=== PATIENT | male | born 1955 | race African-American/Black ===

== ENCOUNTER 2023-12-27 11:29 | Inpatient (IN) | payer OTHER ==
[2023-12-27 19:33] LABS: Specific Gravity 1.018 (1.005-1.030); Sqamous Epithelial <5 /HPF (None Seen); Urine Bacteria None Seen /HPF (<20); Urine Bilirubin NEGATIVE (Negative); Urine Blood Negative (Negative); Urine Clarity Clear (Clear); Urine Color Light-Yellow (Yellow); Urine Culture Reflex Order NOT NEEDED; Urine Glucose NEGATIVE (Negative); Urine Ketones NEGATIVE (Negative); Urine Micro Reflex YN NO BILL MICROSCOPIC; Urine Mucus Slight /HPF (None Seen); Urine Nitrite NEGATIVE (Negative); Urine Protein NEGATIVE (Negative); Urine RBC None Seen /HPF (None Seen); Urine Urobilinogen Normal (Normal); Urine WBC <5 /HPF (<5); Urine pH 6.5 (5.0-7.0)
[2023-12-27] MEDS: levETIRAcetam 500 MG TAB PO SCH (20:17)
[2023-12-27] MEDS: ATORVASTATIN 80 MG TAB PO SCH (20:17)
[2023-12-27] MEDS: APIXABAN 5 MG TABLET PO SCH (20:17)
[2023-12-28 06:38] LABS: Absolute Eosinophils 0.2 K/uL (0-0.5); Absolute Monocytes 0.4 K/uL (0.1-1.3); Absolute Neutrophil 5.7 K/uL (1.8-8.0); MCV 96.2 fL (80-100)
[2023-12-28 06:42] LABS: Absolute Lymphocytes (CBC) 2.3 K/uL (0.7-4.9); Basophils % 0.6 % (0-1.3); Eosinophils % 2.1 % (0-4.4); Hematocrit 43.7 % (39.6-49.0); Hemoglobin 14.4 g/dL (13.6-17.9); Lymphocytes % 26.9 % (15.3-44.8); MCH 31.7 pg (27.0-35.0); MPV 8.3 fL (7.6-11.3); Monocytes % 4.6 % (3.3-12.3); Neutrophils % 65.8 % (41.7-73.7); Platelets 199 thou/uL (152-406); RBC Red Blood Cell Count 4.54 M/uL (4.33-5.43); Red Cell Distribution Width 14.2 % (12.1-15.2)
[2023-12-28 06:57] LABS: Albumin 3.9 g/dL (3.4-5.0); Anion Gap 9.3 mEq/L (5.0-15.0); Magnesium 2.2 mg/dL (1.6-2.4); Potassium 4.3 mEq/L (3.5-5.1); Prealbumin 16.8 mg/dL (20-40)
[2023-12-28 07:22] LABS: Atypical Lymphocytes 2 %; Blood Morphology Comment NOT SEEN (NOT SEEN); Differential Total Cells Count 100; Eosinophils 3 % (0-3); Lymphocytes 25 % (15-42); Monocytes 5 % (0-10); Platelet Estimate ADEQ; Segmented Neutrophils 64 % (40-80); White Blood Cell Scan OK (OK)
[2023-12-28] MEDS: VITAMIN D 5,000 UNIT CAP PO SCH (08:00)
[2023-12-28] MEDS: lisinopriL 20 MG TAB PO SCH (08:00)
[2023-12-28] MEDS: SERTRALINE HCL 50 MG TAB PO SCH (08:04)
[2023-12-28] MEDS: ASPIRIN EC 81 MG TAB PO SCH (08:04)
[2023-12-28] MEDS ORDERED: LOPERAMIDE HCL 2 MG CAPSULE PO PRN (13:39)
--- NOTE | 2023-12-28 15:08 | RAD REPORT ---
EXAM DESCRIPTION: RAD - Chest Single View - 12/28/2023 3:01 pm CLINICAL HISTORY: R/O PNA Chest pain. COMPARISON: No comparisons FINDINGS: Portable technique limits examination quality. The lungs are grossly clear. The heart is normal in size. No displaced fractures. IMPRESSION: No acute intrathoracic process suspected.
[2023-12-28] MEDS: ENSURE CLEAR 200 ML CAN PO SCH (20:57)
[2023-12-28] MEDS: lisinopriL 10 MG TAB PO SCH (20:58)
[2023-12-28] MEDS: MELATONIN 3 MG TABLET PO PRN (20:58)
--- NOTE | 2023-12-29 01:51 | HP ---
Date of Admission: 12/27/2023 Time: 1 p.m. Chief Complaint: The patient's daughter is in the room and the patient became a little bit more conf used and weak after having bladder infection. History Of Present Illness: Mr. Savage is a 68-year-old patient with history of multiple strokes inv olving watershed areas from the MCA and PAINT STOCK CLERK territory in January 2022 in addition to a left MCA str nathaniel in March 2022 and another small left PAINT STOCK CLERK stroke in March 2023 in addition to an additional stroke in the left MCA territory in September 2023. Risk factors include atrial fibrillation, hypertension . The sequelae of stroke include the localization-related seizures, treated with Keppra. He has cor onary artery disease, status post percutaneous coronary angioplasty in addition to hypertension. On December 20, he was seen at [facility] with some worsening left-sided weakness, slurred speech, and confusion. His gait is somewhat shuffling and on top of his left-sided weakness, he had generalized weakness. He was sent to [facility] for higher level of care and there diagnosed wit h encephalopathy in the setting of urinary tract infection and the sequelae of chronic stroke versus acute ischemic stroke. His workup included brain MRI, which showed no acute ischemic stroke, but the MRA showed worsening of his left MCA stenosis. Again, the MRI for stroke on December 25 was negative for acute stroke. He did have transthoracic echocardiogram that was normal. His treatment included aspirin 81 mg daily, atorvastatin 80 mg daily. He did have hypertension addressed with antihypertens shauna medications. He was evaluated by Physical Therapy and Speech Therapy Service and found to requir e minimum assistance for transfers, moderate assistance to maximum assistance for ADLs and for his co mmunication, where he has some difficulty with his expression, comprehension, in addition to difficul ty swallowing with high risk of aspiration. As a result of his urinary tract infection, did receive Rocephin and was put on Eliquis for atrial fibrillation which is paroxysmal. Again, started on aspir in and statin in addition for stroke risk reduction. Given this complicated medical condition and th e need for aggressive physical, occupational, and speech therapy, he was determined to be an appropri ate candidate for inpatient rehabilitation, where he can receive physical, occupational, and speech t herapy along with medical management to help reduce his risk of rehospitalization and help him return to prior level of functioning. Past Medical History: As noted. In addition, tobacco use disorder and atrial fibrillation, on antic oagulation, and multiple strokes as noted. X-ray/imaging: His imaging studies include brain CT angiogram showing complete occlusion of the dist al M1 segment on the right. There is severe stenosis of right vertebral artery at the origin and sca ttered areas of irregularity in the right B1 and B2 segments. EKG shows sinus bradycardia, and brain MRI on 12/21 shows multifocal chronic infarcts in the supratentorial and infratentorial parenchyma. Laboratory Studies: His complete blood count with differential is completely normal. White blood ce ll count 8.7, hemoglobin 14.4, platelets 199. Sodium 140, potassium 4.3, chloride 111, carbon dioxid e 24, BUN 14, creatinine 1.02, calcium 9.9, magnesium 2.2, albumin 3.9, prealbumin 16.8. Urinalysis completely normal. Medications: Eliquis 5 mg twice daily, aspirin 81 mg daily, Lipitor 80 mg at bedtime, Ensure Clear 2 37 mL twice daily, vitamin D 50,000 units weekly, Keppra 750 mg twice daily, Prinivil 10 mg twice bev ly, Imodium 2 mg every 4 hours as needed, melatonin 3 mg at bedtime, Senokot-S 2 at bedtime, Zoloft 5 0 mg daily. Family History: Noncontributory. Social History: The patient lives with family and no intravenous drug use. Does smoke cigarettes. He is not currently smoking because he is in the hospital. Review of Systems: As noted, no current fevers or chills. Mild myalgias, arthralgias. No rash. No headache. No psych iatric issues and no other positives on a 10-point systems review. Physical Examination: Vital Signs: Blood pressure 118/68, pulse 72, respiratory rate of 18, temperature 97.3, oxygen satur ation 97%. General: Mr. Savage is in his room waiting therapy. His daughter is at the bedside. HEENT: He is normocephalic, atraumatic. Sclerae anicteric. Oropharynx moist. Neck: Supple. Chest: Clear. Heart: Regular. Extremities: Show no significant edema or cyanosis. He does have some difficulty in terms of streng th. It is diffusely weak in the left and right side, but he was able to hold his hand up for a count of 10 and legs also elevate for a count of 5. Difficult to assess his sensation properly as he has some difficulty with his expression. However, he does follow commands appropriately with encourageme nt for labial, lingual, and guttural sounds. Current Level Of Functioning: Eating supervision, oral hygiene supervision, toileting moderate yovani tance, bathing maximal assistance, upper body dressing moderate assistance, lower body dressing maxim um assistance, donning and doffing of footwear maximum assistance, rolling [id number] and right-to -left with contact guard assistance. For sit to lying, moderate assistance. For lying to sitting on side of bed, moderate assistance. [id number], moderate assistance. Transfer from bed to chair to toilet, moderate assistance. Ambulation, moderate assistance. Covered a distance of 100 feet with hand holding as he ambulated. Rehab And Medical Assessment And Plan: Mr. Savage is admitted to the inpatient rehabilitation unit w ith impairment category 01 stroke. Impairment group code is 01.4, stroke without significant paresis , but with expressive aphasia. Etiologic diagnosis, sequelae of stroke and his comorbidities are cor onary artery disease, chronic atrial fibrillation, decreased mobility, decreased physical functioning , dysphagia, essential hypertension, dyslipidemia, urinary tract infection. Plan: 1.He will have physical, occupational, and speech therapy for 3.5 hours, 5 of 7 days. 2.We will continue Zoloft for mood stabilization, Senokot for constipation, melatonin for insomnia, Imodium for loose stools, which the patient did have about 2 or 3, Prinivil for hypertension, Keppra 750 mg twice daily for seizure prophylaxis, vitamin D for low vitamin D levels, Lipitor for dyslipide marychuy, Ensure Clear for malnutrition, Eliquis 5 mg twice daily for atrial fibrillation. Comorbidities That Are Impacting Rehabilitation: He does have a risk of seizures and seizure precaut ions will be adhered to padding on the side of the bed with padded rails. The patient of course will have a gait belt at all times as he ambulates and will be observed for the potential for seizure act ivity including activity at rest, automatisms, and tonic-clonic activity. He does have atrial fibril lation and is on Eliquis, so he is at risk of bleeding. Again, fall precautions adhered to at all ti mes to reduce the chance of internal hemorrhage with potential falls. Rehab Specific Plan: Mr. Savage will have physical, occupational, and speech therapy for 3.5 hours, 5 of 7 days, to improve his ability to transfer from bed to chair to a wheelchair to ambulate with a walker and a cane and no assistive device. Also go up and down steps with independence and mobilize a wheelchair with independence. In addition, Speech to help him with his articulation and comprehens ion expression along with his swallowing. He currently has thickened liquids, mechanical soft diet, and will work on advancing the diet to a more solid consistency based on improvement. Mr. Savage has a good understanding of the process of admission to the inpatient rehabilitation [facility], how he will benefit from physical, occupational, and speech therapy. He will have 24 hours a da y, 7 days a week skilled rehabilitation and nursing, daily physician evaluation and management, and s ial services evaluation and management for discharge planning, home equipment, physician followup, and medications. If need be, additional help from Hospital Service will be sought. Barriers To Discharge: Mr. Savage again has atrial fibrillation. There is a possibility of a bleed and he may have to be transferred for higher level of care if that is the case. In addition, the ris k of seizures do exist. He is on Keppra which helps to mitigate against that. Does have difficulty with swallowing. May have aspiration pneumonia, will have chest x-ray done. If need be, blood cultu res and sputum cultures to rule out possibility of a pneumonia. Length Of Stay: About 2 weeks. Disposition: Home with family. Prognosis: Good. Rehab Specific Goals: 1.Become independent with upper and lower body dressing and donning and doffing footwear. 2.Independently perform all activities of daily living. 3.Independently ambulate 250 feet with a rolling walker and a cane and no assistive device. 4.Independently propel a wheelchair 250 feet. 5.Independently go up and down 10 steps with bilateral handrails. 6.Independently perform cognitive functioning. The above goals were reviewed with Mr. Savage and his daughter and they are in agreement. By signing this document, I acknowledge I personally performed a full physical examination on Mr. Roberts lls no later than 24 hours after his admission to the inpatient rehabilitation facility and determine d that he is able to tolerate the above course of treatment at an intensive level for a reasonable pe riod of time. A detailed individualized plan of care for him will be completed by hospital day 4 bas ed on the preadmission screen, history and physical, and therapy evaluations. CHIDI Voice ID: [id number]
--- OUTSIDE RECORDS SUMMARY | 2023-12-29 09:05 | XMS REPORT | Continuity of Care Document ---
Author Name Unknown Address [address] [place] [address] [facility] thconnect Address 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 Name Role Phone Bob Nielsen Primary Care Physician RICKY DIMAS Attending Clinician Unavailable DAREN POND Attending Clinician Unavai NABEEL Dong Attending Clinician Un available Sergio Stringer Attending Clinician Unavailabl jose RODRIGUEZ_F Attending Clinician Unavailable VIKTORIA LAND Attending Clinician Unava ilable Viktoria Land Attending Clinician MORALES_R Attending Clinician Unavailable Jennifer HALL, Francia Attending Clinician [phone] LARISA LEA Attending Clinician Unava ilable MK CRUZ Attending Clinician Unavailab GEMA Guardado Attending Clinician Unavailable ASHLEE NAJERA Attending Clinician UnavailBob Gibbs Attending Clinician [phone] Yasemin Parisi Attending Clinician LARISSA BARRAGAN Admitting Clinician UnavailMANUELA Collins Admitting Clinician Un available TIFFANY ALEJANDRE Admitting Clinician Unavailable DAVID_Aneesh Admitting Clinician Unavailable VIKTORIA LAND Admitting Clinician Unava ilable Viktoria Land Admitting Clinician MORALES_R Admitting Clinician Unavailable MK CRUZ Admitting Clinician Unavailab GEMA Guardado Admitting Clinician Unavailable Payers Payer Name Policy Type Policy Number Effective Date Expirati on Date Source [facility] [employer] [id number] 2021 00:00:00 [facility] - PHYSICIAN HEALTH CHOICE (MEDICARE REPLACEMENT HMO) [id number] [place] [id number] [facility] - MEDICARE COMPLETE (MEDICARE REPLACEMENT HMO) [id number] [place] [employer] [id number] 2013 00:00:00 [employer] (MEDICARE REPLACEMENT HMO) [id number] 2021 00:00:00 Prognosis [employer] (MEDICARE REPLACEMENT/[employer] GE - PPO) [id number] Problems Condition Name Condition Details Condition Category Status Onset Date Resolution Date Last Treatment Date Treating Clinician Comments Source ACUTE ISCHEMIC STROKE ACUTE ISCHEMIC STROKE Active 12/21/2023 [facility] Diagnosis Active 12-20 00:00: 00 2023-12-28 19:55:00 Anna Rodarte Hypophosph atemia Hypophosph atemia Problem Active 09-19 00:00: 00 [facility] Transient cerebral ischemia Transient Cerebral Ischemia Problem Active 09-14 00:00: 00 [facility] TIA VS SEIZURES, GENERALIZE D WEAKNESS TIA VS SEIZURES, GENERALIZE D WEAKNESS Active 09/12/2023 [facility] Diagnosis Active 09-11 18:23: 00 2023-09-13 01:50:00 [facility] BRAIN TIA BRAIN TIA Active 09/12/2023 [facility] Diagnosis Active 09-11 18:23: 00 2023-09-13 02:01:00 Memoria l Cayden BRAIN TIA, SEIZURE DISORDER, ATRIAL FIBR BRAIN TIA, SEIZURE DISORDER, ATRIAL FIBR Active 09/12/2023 [facility] Diagnosis Active 4-30 18:23: 00 2023-09-21 22:00:00 Anna Rodarte Seizure Seizure Problem Active 3-05 00:00: 00 [facility] Multiple nodules of lung Multiple Nodules of Lung Problem Active 1- 00:00: 00 [facility] Seizure (finding) Seizure (finding) Active 03/20/2023 Diagnosis 03/23/2023 [facility] Diagnosis Active 2022-05 00:00: 00 2023-03-23 04:21:47 Anna Rodarte Hypertensi ve disorder, systemic arterial (disorder) Hypertensi ve disorder, systemic arterial (disorder) Active 03/20/2023 Diagnosis 03/23/2023 [facility] Diagnosis Active 2022-05 00:00: 00 2023-03-23 04:21:47 Anna Rodarte STROKE STROKE Active 03/18/2023 [facility] Diagnosis Active 2022-05 1- 00:00: 00 2023-03-20 14:45:00 Anna Rodarte Anemia Anemia Problem Active 2022-05 0- 00:00: 00 [facility] Depressive disorder Depressive Disorder Problem Active 05-17 00:00: 00 [facility] STROKE SYMPTOMS STROKE SYMPTOMS Active 03/31/2022 [facility] Diagnosis Active 2021-05 00:00: 00 2022-03-31 17:03:00 Anna Rodarte STROKE CVA ISCHEMIC STROKE CVA ISCHEMIC Active 03/23/2022 [facility] Diagnosis Active 2021-05 00:00: 00 2022-03-28 15:41:00 Anna Rodarte Mixed hyperlipid emia Mixed Hyperlipid emia Problem Active 2021-05 0 00:00: 00 [facility] Tobacco user Tobacco User Problem Active 2021-05 0 00:00: 00 [facility] Coronary atheroscle rosis Coronary Atheroscle rosis Problem Active 2021-05 0 00:00: 00 [facility] Peripheral vascular disease Peripheral Vascular Disease Problem Active 2021-05 0-14 00:00: 00 [facility] History of transient ischemic attack History of Transient Ischemic Attack Problem Active 02-03 00:00: 00 [facility] CVA CVA Active 01/29/2022 [facility] Diagnosis Active 01-29 00:00: 00 2022-01-29 17:32:00 Anna Rodarte POTENTIAL STROKE POTENTIAL STROKE Active 01/29/2022 [facility] Diagnosis Active 01-29 00:00: 00 2022-01-31 06:49:00 Anna Rodarte ACUTE CEREBROVAS CULAR ACCIDENT ACUTE CEREBROVAS CULAR ACCIDENT Active 01/29/2022 [facility] Diagnosis Active 01-29 00:00: 00 2022-02-08 09:18:00 Anna Rodarte Prediabete s Prediabete s Problem Active 2020-05 0-08 00:00: 00 [facility] Secondary erectile dysfunctio n Secondary Erectile Dysfunctio n Problem Active 5-06 00:00: 00 [facility] Left hemiplegia Left Hemiplegia Problem Active 408 00:00: 00 [facility] Hypertensi ve disorder Hypertensi ve Disorder Problem Active 408 00:00: 00 [facility] Cerebrovas cular accident Cerebrovas cular Accident Problem Active 408 00:00: 00 [facility] Family history of malignant neoplasm Family History of Malignant Neoplasm Problem Active 408 00:00: 00 [facility] No known active problems No known active problems Disease [facility] Hyperlipid emia (disorder) Hyperlipid emia (disorder) Active Problem 02/02/2022 [facility] Problem Active 2022-02-02 22:57:19 Anna Rodarte Cerebral atheroscle rosis (disorder) Cerebral atheroscle rosis (disorder) Active Problem 03/23/2023 [facility] Problem Active 2023-03-23 04:21:47 Anna Rodarte CEREBRAL INFARCTION , UNSPECIFIE D CEREBRAL INFARCTION , UNSPECIFIE D Active [facility] Diagnosis Active 2022-02-08 09:18:00 Anna Rodarte ILLNESS, UNSPECIFIE D ILLNESS, UNSPECIFIE D Active [facility] Diagnosis Active 2023-09-13 01:50:00 Anna Rodarte TRANSIENT CEREBRAL ISCHEMIC ATTACK, UNSP TRANSIENT CEREBRAL ISCHEMIC ATTACK, UNSP Active [facility] Diagnosis Active 2023-09-21 22:00:00 Anna Rodarte History of Past Illness Condition Name Condition Details Condition Category Status Onset Date Resolution Date Last Treatment Date Treating Clinician Comments Source Essential hypertensi on (disorder) Essential hypertensi on (disorder) 03/20/2023 Diagnosis 03/23/2023 [facility] Diagnosis 2022-05 15:07: 00 2023-03-23 04:21:47 2023-03-23 04:21:47 Anna Rodarte Allergies, Adverse Reactions, Alerts Allergy Name Allergy Type Status Severity Reaction(s) Onset Date Inactive Date Treating Clinician Comments Source No Known Medicati on Allergie s No Known Medicati on Allergie s Active Anna Rodarte Social History Social Habit Start Date Stop Date Quantity Comments Source Sexual orientation 2022-03-09 14:42:48 Heterosexual (finding) [facility] History of tobacco use Cigarette Smoker [facility] Alcohol intake 2023-04-21 00:00:00 2023-04-21 00:00:00 .14 /d [facility] Exposure to SARS-CoV-2 (event) 2022-08-06 00:00:00 2022-08-16 08:54:00 Not sure [facility] History of Social function 2022-08-16 00:00:00 2022-08-16 00:00:00 [facility] Cigarettes smoked current (pack per day) - Reported 2022-03-09 00:00:00 2022-03-09 00:00:00 [facility] Cigarette pack-years 2022-03-09 00:00:00 2022-03-09 00:00:00 [facility] Tobacco use and exposure 2022-03-09 00:00:00 2022-03-09 00:00:00 Smokeless tobacco non-user [facility] Sex Assigned At 1955 00:00:00 1955 00:00:00 M [facility] Smoking Status Start Date Stop Date Source Heavy Tobacco Smoker [facility] Tobacco smoking status 2023-03-19 02:14:08 [facility] Medications Ordered Medication Name Filled Medication Name Start Date Stop Date Current Medication? Ordering Clinician Indication Dosage Frequency Signature (SIG) Comments Components Source lisinopril 20 MG tablet 2022-05 15:29: 35 04-21 00:00 :00 No 20mg QD Take 20 mg by mouth 1 (one) time each day. [facility] atorvastati n (Lipitor) 80 MG tablet 2022-05 00:00: 00 07-20 05:59 :00 No [id number] 80mg QD Take 1 tablet (80 mg total) by mouth 1 (one) time each day. [facility] Occupationa l Therapy 2022-05 16:32: 00 Yes See LOLIS Cedeno, EBONIE, Evaluate and Treat ___ times per week for ____ weeks, # 1 ea, 0 Refill(s) Anna Rodarte Physical Therapy 2022-05 16:32: 00 Yes See LOLIS Cedeno, EBONIE, Evaluate and Treat ___ times per week for ____ weeks, # 1 ea, 0 Refill(s) Anna Rodarte apixaban 5 mg oral tablet 2022-05 15:56: 00 Yes 5 mg = 1 tab, PO, Q12H, For Atrial Fibrillati on, # 60 tab, 2 Refill(s), Pharmacy: [facility], 162.56, cm, 03/18/23 21:10:00 CDT, Height, 51.3, kg, 03/18/23 21:10:00 CDT, Weight Anna Rodarte Keppra 750 mg oral tablet 2022-05 15:56: 00 Yes 750 mg = 1 tab, PO, Q12H, # 60 tab, 2 Refill(s), Pharmacy: [facility], 162.56, cm, 03/18/23 21:10:00 CDT, Height, 51.3, kg, 03/18/23 21:10:00 CDT, Weight Anna Rodarte calcium carbonate 2022-05 09:35: 00 No Notes: (Same As: Arely) Calcium Carbonate 500 mg = 200 mg elemental calcium Dose = mg calcium carbonate ( mg elemental calcium) Anna Rodarte atorvastati n 2022-05 03:00: 00 Yes Notes: Same as Lipitor Anna Rodarte Keppra 750 mg oral tablet 2022-05 03:00: 00 No 750 mg, Route: PO, Drug form: TAB, Q12H, Dosing Weight 51.3, kg, Start date: 03/19/23 21:00:00 [employer], Duration: 30 day, Stop date: 04/18/23 9:00:00 [employer] Anna Rodarte nicotine 2022-05 16:48: 00 Yes Notes: Patch is applied daily to clean, dry, hairless, intact skin on trunk or upper outer arm. Starting dose 10 or less cigarettes /day. Remove old patch before applicatio n of new patch. (Same as Dalton Mccoy WASTE: F/P - P Waste Black; E - P Waste Black Anna Rodarte Eliquis 2022-05 15:19: 00 Yes Notes: Same as: Eliquis Anna Thompsonann Saline Flush 0.9% 2022-05 15:00: 00 Yes Notes: (Same as: BD Posiflush) Anna Rodarte senna 8.6 mg oral tablet 2022-05 15:00: 00 Yes Notes: (Same as: Senokot) Anna Rodarte MiraLax 2022-05 15:00: 00 Yes Notes: Dissolve in 8 oz of water or juice. (Same as: Miralax) Anna carole Cayden sertraline 2022-05 15:00: 00 Yes Notes: (Same as: Zoloft) Anna carole Newton PHOS-NaK oral powder for reconstitut ion 2022-05 12:09: 00 No Notes: (Same as: Phos-NaK) Each 1.5 gm pkt has 250mg phosphorou s. Mix w/2.5oz water and stir. Anna Rodarte melatonin 3 mg oral tablet 2022-05 04:00: 00 Yes Notes: (Same as: Melatonin) Anna Rodarte Xarelto 10 mg oral tablet 2022-05 03:41: 00 Yes 10 mg, PO, Daily, tab, 0 Refill(s) Anna Rodarte sertraline 50 mg oral tablet 2022-05 03:40: 00 Yes 50 mg = 1 tab, PO, Daily, # 30 tab, 0 Refill(s) Anna Rodarte buPROPion 2022-05 03:40: 00 Yes 150 mg, PO, Daily, 0 Refill(s) Anna Rodarte Xarelto 15 mg oral tablet 2022-05 03:40: 00 No 15 mg = 1 tab, PO, Daily, # 90 tab, 3 Refill(s) Anna Rodarte lisinopril 20 mg tablet Take 1 tablet every day by oral route for 90 days. lisinopril 20 mg tablet Take 1 tablet every day by oral route for 90 days. 12-13 00:00: 00 No lisinopril 20 mg tablet Take 1 tablet every day by oral route for [address] [facility] sertraline (Zoloft) 50 MG tablet 08-16 09:18: 16 Yes 50mg QD Take 50 mg by mouth 1 (one) time each day. [facility] lisinopril 30 MG tablet 08-16 09:18: 16 Yes 30mg QD Take 30 mg by mouth 1 (one) time each day. [facility] lisinopril 20 MG tablet 08-16 09:18: 16 Yes 20mg QD Take 20 mg by mouth 1 (one) time each day. [facility] atorvastati n (Lipitor) 40 MG tablet 08-16 00:00: 00 08-16 00:00 :00 No [id number] 80mg Take 2 tablets (80 mg total) by mouth every night. [facility] buPROPion (Zyban) 150 MG 12 hr tablet 05-17 00:00: 00 08-16 00:00 :00 No [id number] TAKE 1 TABLET BY MOUTH IN THE MORNING AND 1 TABLET IN THE EVENING. DO NOT CRUSH, CHEW OR SPLIT. [facility] aspirin EC 81 MG EC tablet 2021-05 13:25: 46 Yes 81mg QD Take 81 mg by mouth 1 (one) time each day. [facility] nicotine (Nicoderm CQ) 14 MG/24HR patch 2021-05 00:00: 00 08-16 00:00 :00 No [id number] 1{patch } Place 1 patch on the skin 1 (one) time each day at the same time. [facility] Physical Therapy 2021-05 17:18: 00 Yes See Instructio angela, LOLIS, ONCMARGE, Evaluate and Treat _3__ times per week for __4__ weeks, # 1 ea, 0 Refill(s) Anna Rodarte Occupationa l Therapy 2021-05 17:18: 00 Yes See Instructinocencio miller, LOLIS, ONCMARGE, Evaluate and Treat _3__ times per week for __4__ weeks, # 1 ea, 0 Refill(s) Anna Rodarte aspirin 81 mg tablet, chewable 2021-05 17:17: 00 Yes 81 mg = 1 tab, PO, Daily, # 90 tab, 0 Refill(s), Pharmacy: [facility], 167.64, cm, 03/24/22 1:30:00 [employer], Height, 57.409, kg, 03/24/22 1:30:00 [employer], Weight Poornimaopal carole Rodarte atorvastati n 80 mg oral tablet 2021-05 17:17: 00 Yes 80 mg = 1 tab, PO, Bedtime, # 90 tab, 0 Refill(s), Pharmacy: [facility], 167.64, cm, 03/24/22 1:30:00 [employer], Height, 57.409, kg, 03/24/22 1:30:00 [employer], Weight Anna carole Rodarte clopidogrel 75 mg oral tablet 2021-05 17:17: 00 Yes 75 mg = 1 tab, PO, Daily, # 90 tab, 0 Refill(s), Pharmacy: [facility], 167.64, cm, 03/24/22 1:30:00 [employer], Height, 57.409, kg, 03/24/22 1:30:00 [employer], Weight Anna Thompsonann lisinopril 20 mg oral tablet 2021-05 17:17: 00 Yes 20 mg = 1 tab, PO, Daily, # 90 tab, 0 Refill(s), Pharmacy: [facility], 167.64, cm, 03/24/22 1:30:00 [employer], Height, 57.409, kg, 03/24/22 1:30:00 [employer], Weight Anna carole Newton remove patch 2021-05 15:00: 00 No Notes: Remove old patch before applicatio n of new patch. WASTE: F/P - P Waste Black; E - P Waste Black Anna Rodarte lisinopril 2021-05 14:41: 00 No Notes: (Same as: Prinivrussell Zestril) Anna Rodarte atorvastati n 2021-05 03:00: 00 No Notes: Same as Lipitor Anna Rodarte Reglan 2021-05 23:34: 00 Yes Notes: (Same as: Reglan) Take 30 min before meals Anna Rodarte heparin 5000 units/mL injectable solution 2021-05 22:00: 00 No Notes: porcine heparin Anna Rodarte aspirin 2021-05 17:20: 00 No Notes: Do not crush or chew. (Same As: Ecotrin) Anna Rodarte nicotine 2021-05 15:00: 00 No Notes: Patch is applied daily to clean, dry, hairless, intact skin on trunk or upper outer arm. Remove old patch before applicatio n of new patch. (Same as Habitrol Nicoderm) WASTE: F/P - P Waste Black; E - P Waste Black Anna Rodarte docusate 2021-05 15:00: 00 No Notes: (Same as: Colace) (Do Not Crush) Anna Rodarte Saline Flush 0.9% 2021-05 15:00: 00 No Notes: (Same as: BD Posiflush) Anna Rodarte Omnipaque 350 mg/mL 2021-05 14:18: 00 No 70 mL, Route: IVP, Drug Form: SOLN, Dosing Weight 57.409, kg, ONCALL, STAT, Start date: 03/24/22 8:18:00 [employer], Duration: 1 doses or times, Dose = 2.2ml/kg, Max dose = 100ml -- "To be infused by Radiology Staff ONLY" Anna Rodarte aspirin 81 mg tablet, chewable 2021-05 09:07: 00 No Notes: Take with food. Anna Rodarte Plavix 2021-05 09:07: 00 No Notes: (Same As: Plavix) Anna Rodarte pneumococca l 23-valent vaccine 2021-05 07:36: 49 No Notes: (Same as: Pneumovax 23) Refrigerat e Anna Rodarte influenza virus vaccine, inactivated high-dose preservativ e-free intramuscul ar suspension 2021-05 07:36: 16 No Notes: (Same as: Fluzone High-Dose Quad) For 65 years of age of older (0.7 ml IM) Shake well before use Anna Rodarte Sodium Chloride 0.9% IV 1,000 mL 2021-05 07:23: 00 No 1,000 mL, Rate: 75 ml/hr, Infuse over: 13.3 hr, Route: IV, Dosing Weight 57.273 kg, Total Volume: 1,000, Start date: 03/24/22 1:23:00 [employer], Duration: 30 day, Stop date: 04/23/22 1:22:00 [employer], BSA: 1.64 m2, 0 Anna Rodarte acetaminoph en 2021-05 07:23: 00 No Notes: Do not exceed 4 gm/day. (Same as: Tylenol) Anna Rodarte aspirin EC 81 MG EC tablet 2021-05 14:29: 16 Yes 81mg QD Take 81 mg by mouth 1 (one) time each day. [facility] buPROPion (Zyban) 150 MG 12 hr tablet 2021-05 00:00: 00 04-09 05:59 :00 No [id number] 150mg Q.5D Take 1 tablet (150 mg total) by mouth in the morning and 1 tablet (150 mg total) in the evening. Do not crush, chew, or split. . [facility] aspirin 81 mg tablet, chewable 01-31 15:44: 00 Yes 81 mg = 1 tab, PO, Daily, 0 Refill(s) Anna Rodarte atorvastati n 40 mg oral tablet 01-31 15:44: 00 Yes 80 mg = 2 tab, PO, Bedtime, # 30 tab, 0 Refill(s), Pharmacy: [facility] [id number], 167.64, cm, 01/29/22 20:30:00 CDT, Height, 57.273, kg, 01/29/22 20:30:00 CDT, Weight Anna Rodarte clopidogrel 75 mg oral tablet 01-31 15:44: 00 Yes 75 mg = 1 tab, PO, Daily, # 90 tab, 0 Refill(s), [facility]: [facility] [id number], 167.64, cm, 01/29/22 20:30:00 CDT, Height, 57.273, kg, 01/29/22 20:30:00 CDT, Weight Anna Rodarte Sodium Chloride 0.9% + KCL 20mEq/L 1000ml (Premix) 1,000 mL 01-31 04:38: 00 No Notes: PREMIX IV - Do Not Alter WASTE: F/P - Sink; E - Municipal Trash Bin Anna Rodarte clopidogrel (Plavix) 75 MG tablet 01-31 00:00: 00 08-16 00:00 :00 No 75mg QD Take 75 mg by mouth 1 (one) time each day. [facility] atorvastati n (Lipitor) 40 MG tablet 01-31 00:00: 00 08-16 00:00 :00 No 80mg Take 80 mg by mouth every night. [facility] Dextrose 50% Syringe (D50W) 01-30 22:48: 00 No 12.5 gm, 25 mL, Route: IVP, Drug Form: INJ, Dosing Weight 57.273, kg, PRN, PRN Blood Glucose Results, Start date: 01/30/22 17:48:00 CDT, Duration: 30 day, Stop date: 03/01/22 17:47:00 CDT, 0 Anna carole Newton glucagon 01-30 22:48: 00 No 1 mg, Route: IM, Drug form: PDR/INJ, PRN, Dosing Weight 57.273, kg, PRN Blood Glucose Results, Start date: 01/30/22 17:48:00 CDT, Duration: 30 day, Stop date: 03/01/22 17:47:00 CDT, 0 Anna carole Rodarte insulin lispro 01-30 22:48: 00 No Notes: (Same as: Humalog) Roll in palms of hands gently; Do not shake vigorously . WASTE: F/P - Black; E - Municipal Trash Bin Stable for 28 days at room temperatur e. Expires in days from ____Date Anna Rodarte NS (Bolus) IV 01-30 22:47: 00 No 1,000 mL, 1,000 ml/hr, Infuse Over: 1 hr, Route: IV, 1,000, Drug form: INJ, ONCE, Priority: STAT, Dosing Weight 57.273 kg, Start date: 01/30/22 17:47:00 CDT, Stop date: 01/30/22 17:47:00 CDT, 0 Anna Rodarte clopidogrel 01-30 14:00: 00 No Notes: (Same As: Plavix) Anna Rodarte atorvastati n 01-30 02:00: 00 No Notes: (Same as: Lipitor) Anna Rodarte Saline Flush 0.9% 01-30 02:00: 00 No Notes: (Same as: BD Posiflush) Anna Rodarte senna 8.6 mg oral tablet 01-30 02:00: 00 No Notes: (Same as: Senokot) Anna Rodarte MiraLax 01-30 02:00: 00 No Notes: Dissolve in 8 oz of water or juice. (Same as: Miralax) Anna Rodarte heparin 01-29 21:00: 00 No Notes: porcine heparin Anna Rodarte Plavix 01-29 19:01: 00 No 600 mg, Route: PO, Drug form: TAB, ONCE, Dosing Weight 62.9, kg, Start date: 01/29/22 14:01:00 CDT, Stop date: 01/29/22 14:01:00 CDT Anna Rodarte Omnipaque 350 mg/mL 01-29 18:24: 00 No 100 mL, Route: IVP, Drug Form: SOLN, kg, ONCALL, STAT, Start date: 01/29/22 13:24:00 CDT, Duration: 1 doses or times, Dose = 2.2ml/kg, Max dose = 100ml -- "To be infused by Radiology Staff ONLY" Poornimaopal Thompsonann lisinopril- hydroCHLORO thiazide 20-12.5 MG tablet 2020-05 00:00: 00 08-16 00:00 :00 No 1{tbl} QD Take 1 tablet by mouth 1 (one) time each day. [facility] aspirin 81 mg tablet,neeru yed release TAKE 1 TABLET BY MOUTH ONCE DAILY aspirin 81 mg tablet,neeru yed release TAKE 1 TABLET BY MOUTH ONCE DAILY No aspirin 81 mg tablet,del ayed release TAKE 1 TABLET BY MOUTH ONCE DAILY [facility] Eliquis 5 mg tablet TAKE 1 TABLET BY MOUTH EVERY 12 HOURS Eliquis 5 mg tablet TAKE 1 TABLET BY MOUTH EVERY 12 HOURS No Eliquis 5 mg tablet TAKE 1 TABLET BY MOUTH EVERY [address] [facility] levetiracet am 750 mg tablet TAKE 1 TABLET BY MOUTH EVERY 12 HOURS levetiracet am 750 mg tablet TAKE 1 TABLET BY MOUTH EVERY 12 HOURS No levetirace preston 750 mg tablet TAKE 1 TABLET BY MOUTH EVERY [address] [facility] cholecalcif sreedhar (vitamin D3) 1,250 mcg (50,000 unit) capsule Take 1 capsule every week by oral route for 90 days, for Low Vit D.. cholecalcif sreedhar (vitamin D3) 1,250 mcg (50,000 unit) capsule Take 1 capsule every week by oral route for 90 days, for Low Vit D.. No 1capsul e(s) Q1W cholecalci ferol (vitamin D3) 1,250 mcg (50,000 unit) capsule Take 1 capsule every week by oral route for 90 days, for Low Vit D.. [facility] Vital Signs Vital Name Observation Time Observation Value Comments S ource BP Diastolic 2023-11-27 00:00:00 62 mm[Hg] [facility] BP Systolic 2023-11-27 00:00:00 136 mm[Hg] [facility] Height 2023-11-27 00:00:00 65 [in_i] [facility] Height 2023-09-20 00:00:00 65 [in_i] [facility] BMI (Body Mass Index) 2023-09-20 00:00:00 20 kg/m2 [facility] BP Diastolic 2023-09-20 00:00:00 68 mm[Hg] [facility] BP Systolic 2023-09-20 00:00:00 130 mm[Hg] [facility] Body Weight 2023-09-20 00:00:00 1920 [oz_av] [facility] BP Systolic 2023-07-18 00:00:00 124 mm[Hg] [facility] BMI (Body Mass Index) 2023-07-18 00:00:00 20 kg/m2 [facility] BP Diastolic 2023-07-18 00:00:00 56 mm[Hg] [facility] Body Weight 2023-07-18 00:00:00 1920 [oz_av] [facility] Height 2023-07-18 00:00:00 65 [in_i] [facility] BMI (Body Mass Index) 2023-02-28 00:00:00 19.1 kg/m2 [facility] BP Diastolic 2023-02-28 00:00:00 72 mm[Hg] [facility] Body Weight 2023-02-28 00:00:00 1840 [oz_av] [facility] BP Systolic 2023-02-28 00:00:00 132 mm[Hg] [facility] Height 2023-02-28 00:00:00 65 [in_i] [facility] BMI (Body Mass Index) 2022-12-27 00:00:00 18.1 kg/m2 [facility] Height 2022-12-27 00:00:00 65 [in_i] [facility] BP Diastolic 2022-12-27 00:00:00 72 mm[Hg] [facility] Body Weight 2022-12-27 00:00:00 1744 [oz_av] [facility] BP Systolic 2022-12-27 00:00:00 130 mm[Hg] [facility] BP Diastolic 2022-12-13 00:00:00 70 mm[Hg] [facility] Height 2022-12-13 00:00:00 65 [in_i] [facility] BMI (Body Mass Index) 2022-12-13 00:00:00 18.2 kg/m2 [facility] BP Systolic 2022-12-13 00:00:00 144 mm[Hg] [facility] [facility] Body Weight 2022-12-13 00:00:00 1752 [oz_av] [facility] Systolic blood pressure 2022-08-16 14:18:00 108 mm[Hg] [facility] Diastolic blood pressure 2022-08-16 14:18:00 69 mm[Hg] [facility] Heart rate 2022-08-16 14:18:00 75 /min [facility] Body temperature 2022-08-16 14:18:00 36.67 Mirian [facility] Respiratory rate 2022-08-16 14:18:00 20 /min [facility] Body height 2022-08-16 14:18:00 167.6 cm [facility] Body weight 2022-08-16 14:18:00 55.339 [facility] BMI 2022-08-16 14:18:00 19.69 kg/m2 [facility] BP Diastolic 2022-08-09 00:00:00 84 mm[Hg] [facility] Height 2022-08-09 00:00:00 65 [in_i] [facility] BMI (Body Mass Index) 2022-08-09 00:00:00 20.4 kg/m2 [facility] BP Systolic 2022-08-09 00:00:00 124 mm[Hg] [facility] Body Weight 2022-08-09 00:00:00 1960 [oz_av] [facility] BP Diastolic 2022-05-17 00:00:00 88 mm[Hg] [facility] Height 2022-05-17 00:00:00 65 [in_i] [facility] BMI (Body Mass Index) 2022-05-17 00:00:00 19.1 kg/m2 [facility] BP Systolic 2022-05-17 00:00:00 172 mm[Hg] [facility] Body Weight 2022-05-17 00:00:00 1840 [oz_av] [facility] BP Diastolic 2022-05-02 00:00:00 68 mm[Hg] [facility] Height 2022-05-02 00:00:00 65 [in_i] [facility] BMI (Body Mass Index) 2022-05-02 00:00:00 20 kg/m2 [facility] BP Systolic 2022-05-02 00:00:00 168 mm[Hg] [facility] Body Weight 2022-05-02 00:00:00 1920 [oz_av] [facility] Systolic blood pressure 2022-04-29 19:26:00 184 mm[Hg] [facility] Diastolic blood pressure 2022-04-29 19:26:00 75 mm[Hg] [facility] Heart rate 2022-04-29 19:26:00 55 /min [facility] Body temperature 2022-04-29 19:26:00 35.11 Mirian [facility] Body height 2022-04-29 19:26:00 167.6 cm [facility] Body weight 2022-04-29 19:26:00 54.432 [facility] BMI 2022-04-29 19:26:00 19.37 kg/m2 [facility] Oxygen saturation in Arterial blood by Pulse oximetry 2022-04-29 19:26:00 100 /min [facility] BP Diastolic 2022-04-04 00:00:00 64 mm[Hg] [facility] Height 2022-04-04 00:00:00 65 [in_i] [facility] BMI (Body Mass Index) 2022-04-04 00:00:00 20 kg/m2 [facility] BP Systolic 2022-04-04 00:00:00 138 mm[Hg] [facility] Body Weight 2022-04-04 00:00:00 1920 [oz_av] [facility] Systolic blood pressure 2022-03-09 19:21:00 124 mm[Hg] [facility] Diastolic blood pressure 2022-03-09 19:21:00 75 mm[Hg] [facility] Heart rate 2022-03-09 19:21:00 55 /min [facility] Body temperature 2022-03-09 19:21:00 36 Mirian [facility] Respiratory rate 2022-03-09 19:21:00 18 /min [facility] Body height 2022-03-09 19:21:00 165.1 cm [facility] Body weight 2022-03-09 19:21:00 55.339 [facility] BMI 2022-03-09 19:21:00 20.30 kg/m2 [facility] Oxygen saturation in Arterial blood by Pulse oximetry 2022-03-09 19:21:00 99 /min [facility] BP Diastolic 2022-02-03 00:00:00 64 mm[Hg] [facility] Height 2022-02-03 00:00:00 65 [in_i] [facility] BMI (Body Mass Index) 2022-02-03 00:00:00 20.6 kg/m2 [facility] BP Systolic 2022-02-03 00:00:00 108 mm[Hg] [facility] Body Weight 2022-02-03 00:00:00 1976 [oz_av] [facility] BP Diastolic 2022-01-18 00:00:00 78 mm[Hg] [facility] Height 2022-01-18 00:00:00 65 [in_i] [facility] BMI (Body Mass Index) 2022-01-18 00:00:00 20.6 kg/m2 [facility] BP Systolic 2022-01-18 00:00:00 122 mm[Hg] [facility] Body Weight 2022-01-18 00:00:00 1984 [oz_av] [facility] BP Diastolic 2022-01-13 00:00:00 86 mm[Hg] [facility] Height 2022-01-13 00:00:00 65 [in_i] [facility] BMI (Body Mass Index) 2022-01-13 00:00:00 20.8 kg/m2 [facility] BP Systolic 2022-01-13 00:00:00 128 mm[Hg] [facility] Body Weight 2022-01-13 00:00:00 2000 [oz_av] [facility] BP Diastolic 2021-03-19 00:00:00 82 mm[Hg] [facility] Height 2021-03-19 00:00:00 65 [in_i] [facility] BMI (Body Mass Index) 2021-03-19 00:00:00 20.8 kg/m2 [facility] BP Systolic 2021-03-19 00:00:00 152 mm[Hg] [facility] Body Weight 2021-03-19 00:00:00 2000 [oz_av] [facility] BP Diastolic 2021-02-16 00:00:00 72 mm[Hg] [facility] Height 2021-02-16 00:00:00 65 [in_i] [facility] BMI (Body Mass Index) 2021-02-16 00:00:00 21.3 kg/m2 [facility] BP Systolic 2021-02-16 00:00:00 136 mm[Hg] [facility] Body Weight 2021-02-16 00:00:00 2048 [oz_av] [facility] BP Diastolic 2021-02-04 00:00:00 78 mm[Hg] [facility] Height 2021-02-04 00:00:00 65 [in_i] [facility] BMI (Body Mass Index) 2021-02-04 00:00:00 20.8 kg/m2 [facility] BP Systolic 2021-02-04 00:00:00 134 mm[Hg] [facility] Body Weight 2021-02-04 00:00:00 2000 [oz_av] [facility] BP Diastolic 2020-11-13 00:00:00 54 mm[Hg] [facility] Height 2020-11-13 00:00:00 65 [in_i] [facility] BMI (Body Mass Index) 2020-11-13 00:00:00 20.9 kg/m2 [facility] BP Systolic 2020-11-13 00:00:00 102 mm[Hg] [facility] Body Weight 2020-11-13 00:00:00 2008 [oz_av] [facility] BP Diastolic 2020-09-17 00:00:00 82 mm[Hg] [facility] Height 2020-09-17 00:00:00 65 [in_i] [facility] BMI (Body Mass Index) 2020-09-17 00:00:00 21.8 kg/m2 [facility] BP Systolic 2020-09-17 00:00:00 140 mm[Hg] [facility] Body Weight 2020-09-17 00:00:00 2096 [oz_av] [facility] BP Diastolic 2020-08-27 00:00:00 72 mm[Hg] [facility] Height 2020-08-27 00:00:00 65 [in_i] [facility] BMI (Body Mass Index) 2020-08-27 00:00:00 22.1 kg/m2 [facility] BP Systolic 2020-08-27 00:00:00 128 mm[Hg] [facility] Body Weight 2020-08-27 00:00:00 2128 [oz_av] [facility] BP Diastolic 2020-08-20 00:00:00 78 mm[Hg] [facility] Height 2020-08-20 00:00:00 65 [in_i] [facility] BMI (Body Mass Index) 2020-08-20 00:00:00 22.1 kg/m2 [facility] BP Systolic 2020-08-20 00:00:00 132 mm[Hg] [facility] Body Weight 2020-08-20 00:00:00 2128 [oz_av] [facility] Systolic (mm Hg) 2023-03-20 23:00:00 [facility] Diastolic (mm Hg) 2023-03-20 23:00:00 [facility] Temperature Oral (F) 2023-03-20 22:48:35 98.3 F [facility] Temperature Oral (F) 2023-03-20 13:55:21 98.4 F [facility] Systolic (mm Hg) 2023-03-20 13:00:00 [facility] Diastolic (mm Hg) 2023-03-20 13:00:00 [facility] Respitory Rate 2023-03-20 13:00:00 [facility] Systolic (mm Hg) 2023-03-20 12:13:00 [facility] Diastolic (mm Hg) 2023-03-20 12:13:00 [facility] Respitory Rate 2023-03-20 12:13:00 [facility] Systolic (mm Hg) 2023-03-20 11:00:00 [facility] Diastolic (mm Hg) 2023-03-20 11:00:00 [facility] Respitory Rate 2023-03-20 11:00:00 [facility] Temperature Oral (F) 2023-03-20 10:15:04 97.8 F [facility] Temperature Oral (F) 2023-03-20 06:08:26 98.4 F [facility] Temperature Oral (F) 2023-03-19 22:35:35 97.2 F [facility] Heart Rate 2023-03-19 09:00:00 [facility] Heart Rate 2023-03-19 08:34:00 [facility] Height 2023-03-19 02:10:00 5 [ft_i] [facility] Weight 2023-03-19 02:10:00 [facility] BMI Calculated 2023-03-19 02:10:00 [facility] Systolic (mm Hg) 2022-03-31 23:59:00 [facility] Diastolic (mm Hg) 2022-03-31 23:59:00 [facility] Heart Rate 2022-03-31 23:59:00 [facility] Height 2022-03-31 21:08:00 5 [ft_i] [facility] BMI Calculated 2022-03-31 21:08:00 [facility] Weight 2022-03-31 21:08:00 [facility] Temperature Oral (F) 2022-03-31 21:08:00 98.6 F [facility] Systolic (mm Hg) 2022-03-25 23:00:00 [facility] Diastolic (mm Hg) 2022-03-25 23:00:00 [facility] Respitory Rate 2022-03-25 23:00:00 [facility] Respitory Rate 2022-03-25 22:28:00 [facility] Systolic (mm Hg) 2022-03-25 22:28:00 [facility] Diastolic (mm Hg) 2022-03-25 22:28:00 [facility] Respitory Rate 2022-03-25 21:00:00 [facility] Systolic (mm Hg) 2022-03-25 21:00:00 [facility] Diastolic (mm Hg) 2022-03-25 21:00:00 [facility] Temperature Oral (F) 2022-03-25 14:15:00 96.6 F [facility] Temperature Oral (F) 2022-03-25 10:25:00 98.0 F [facility] Temperature Oral (F) 2022-03-25 06:15:00 97.6 F [facility] Heart Rate 2022-03-24 11:11:00 [facility] Heart Rate 2022-03-24 11:02:00 [facility] Height 2022-03-24 07:00:00 167.64 cm [facility] Weight 2022-03-24 07:00:00 [facility] BMI Calculated 2022-03-24 07:00:00 [facility] Temperature Oral (F) 2022-01-31 20:00:00 98.0 F [facility] Respitory Rate 2022-01-31 19:00:00 [facility] Systolic (mm Hg) 2022-01-31 19:00:00 [facility] Diastolic (mm Hg) 2022-01-31 19:00:00 [facility] Respitory Rate 2022-01-31 18:00:00 [facility] Systolic (mm Hg) 2022-01-31 17:00:00 [facility] Diastolic (mm Hg) 2022-01-31 17:00:00 [facility] Respitory Rate 2022-01-31 17:00:00 [facility] Temperature Oral (F) 2022-01-31 16:00:00 97.9 F [facility] Systolic (mm Hg) 2022-01-31 16:00:00 [facility] Diastolic (mm Hg) 2022-01-31 16:00:00 [facility] Temperature Oral (F) 2022-01-31 13:03:10 97.6 F [facility] Height 2022-01-30 01:30:00 167.64 cm [facility] Weight 2022-01-30 01:30:00 [facility] BMI Calculated 2022-01-30 01:30:00 [facility] Height 2022-01-29 18:09:00 167.64 cm [facility] BMI Calculated 2022-01-29 18:09:00 [facility] Weight 2022-01-29 18:09:00 [facility] Heart Rate 2022-01-29 18:09:00 [facility] Procedures Procedure Date / Time Performed Performing Clinicia n Source LDCT, chest, for lung cancer screening 2023-02-28 00:00:00 [facility] Insertion of Stent in Femoral Vein [facility] Unlisted Procedure Stomach [facility] Stent replacement [facility] Encounters Start Date/Time End Date/Time Encounter Type Admission Type Attending [facility] Care Facility Care Department Encounter ID Source 2022-12-07 08:51:45 Outpatient [facility] [id number] [facility] 2022-08-18 11:58:47 Outpatient [facility] [id number] [facility] 2022-08-04 11:14:12 Outpatient [facility] [id number] [facility] 2022-04-28 08:11:06 Outpatient [facility] [id number] [facility] 2022-04-05 10:41:58 Outpatient [facility] [id number] [facility] 2022-03-09 14:07:26 Outpatient [facility] [id number] [facility] 2022-03-08 10:26:44 Outpatient [facility] [id number] [facility] 2022-02-15 08:57:33 Outpatient [facility] [id number] [facility] 2022-02-08 11:42:34 Outpatient [facility] [id number] [facility] 2022-02-01 12:19:37 Outpatient [facility] [id number] [facility] 2022-01-31 14:24:29 Outpatient [facility] [id number] [facility] 2024-01-30 08:00:00 2024-01-30 08:00:00 Outpatient RICKY DIMAS [facility] [id number] [facility] 2023-12-22 10:19:00 2023-12-27 16:20:00 Inpatient Jose DEJAH DAREN [facility] [id number] [facility] 2023-11-27 00:00:00 2023-11-27 00:00:00 ABIMAEL Cruz: [address] , [place] [address] , Ph. [phone] [facility], ABIMAEL CRUZ [id number] [facility] 2023-09-20 00:00:00 2023-09-20 00:00:00 KIMBER CruzP-C: [address], [place] [address] , Ph. [facility], KIMBER CRUZP-C [id number] [facility] 2023-09-13 10:32:00 2023-09-15 14:09:00 Inpatient NABEEL EISENBERG [facility] [id number] [facility] 2023-07-18 00:00:00 2023-07-18 00:00:00 Tiffany Rodriguez [facility]: [address], [place] [address] , Ph. [phone] [facility], DR. NIELSEN [id number] [facility] 2023-07-05 11:37:00 2023-07-05 11:37:00 Outpatient JEISON Sergio Stringer [facility] [id number] [facility] 2023-06-26 17:18:00 2023-06-26 17:18:00 Outpatient Sergio Stringer [facility] [id number] [facility] 2023-06-12 00:00:00 2023-06-12 00:00:00 Outpatient SHERRYSE_F [facility] [id number] [facility] 2023-05-11 15:24:00 2023-05-11 15:24:00 Outpatient Sergio Stringer [facility] [id number] [facility] 2023 12:00:00 2023 12:00:00 Outpatient RICKY DIMAS [facility] [id number] [facility] 2023-04-21 15:30:00 2023-04-21 15:45:33 Telemedici pr Ricky Dimas [facility] [id number] [id number] [facility] 2023-03-18 21:01:00 2023-03-20 17:43:00 Outpatient E CZVIKTORIA LEMUS [facility] [id number] [address] [place] [address] 2023-03-18 21:01:00 2023-03-20 17:43:00 Outpatient CzapViktoria [facility] [id number] 2023-03-18 20:45:00 2023-03-18 20:45:00 Outpatient CzapViktoria [facility] [id number] 2023-03-02 00:00:00 2023-03-02 00:00:00 Outpatient APOLINAR [facility] [id number] [facility] 2023-03-02 00:00:00 2023-03-02 00:00:00 PITO Lovell-C: [place] [address] , Ph. [phone] [facility], [address]. [address]SEN [id number] [facility] 2023-02-28 00:00:00 2023-02-28 00:00:00 PITO Lovell-C: [place] [address] , Ph. [facility], DR. NIELSEN [id number] [facility] 2022-12-27 00:00:00 2022-12-27 00:00:00 Bob Nielsen, : [place] [address] , Ph. [facility], DR. NIELSEN [id number] [facility] 2022-12-20 09:00:00 2022-12-20 09:00:00 Outpatient RICKY DIMAS [facility] [id number] [facility] 2022-12-19 00:00:00 2022-12-19 00:00:00 Outpatient ERICKSON_R [facility] [id number] 2022-12-19 00:00:00 2022-12-19 00:00:00 Outpatient [facility] [id number] [facility] 2022-12-13 00:00:00 2022-12-13 00:00:00 Outpatient [facility] [id number] [facility] 2022-12-13 00:00:00 2022-12-13 00:00:00 Bob Nielsen, DO: [address] [place] [address] , Ph. [phone] [facility], [address]SEN [id number] [facility] 2022-08-16 09:00:00 2022-08-16 10:38:53 Office Visit Ricky Dimas [facility] [id number] [facility] [id number] [facility] 2022-08-09 00:00:00 2022-08-09 00:00:00 Bob Nielsen, DO: [address] [place] [address] , Ph. [phone] [facility], [address]SEN [id number] [facility] 2022-08-04 00:00:00 2022-08-04 00:00:00 Outpatient [facility] [id number] [facility] 2022-06-14 10:00:00 2022-06-14 10:00:00 Outpatient RICKY DIMAS [facility] [id number] [facility] 2022-05-17 00:00:00 2022-05-17 00:00:00 Outpatient [facility] [id number] [facility] 2022-05-17 00:00:00 2022-05-17 00:00:00 Bob Nielsen, DO: [address] [place] [address] , Ph. [facility], DR[facility] NIELSEN [id number] [facility] 2022-05-03 13:00:00 2022-05-03 13:00:00 Outpatient RICKY DIMAS [facility] [id number] [facility] 2022-05-02 00:00:00 2022-05-02 00:00:00 Outpatient [facility] [id number] [facility] 2022-05-02 00:00:00 2022-05-02 00:00:00 Outpatient [facility] [id number] [facility] 2022-05-02 00:00:00 2022-05-02 00:00:00 Bob Nielsen, DO: [address], [place] [address] , Ph. [facility], DR[facility] NIELSEN [id number] [facility] 2022-04-29 13:00:00 2022-04-29 15:01:31 Office Visit Francia Rodriguez [facility] [address] [id number] [facility] 2022-04-04 00:00:00 2022-04-04 00:00:00 Outpatient [facility] [id number] [place] [facility] 2022-04-04 00:00:00 2022-04-04 00:00:00 Bob Nielsen, DO: [address], [place] [address] , Ph. [phone] [facility], DR. NIELSEN [id number] [place] [facility] 2022-03-31 15:04:00 2022-03-31 18:59:00 Emergency E LARISA LEA [facility] [id number] [facility] 2022-03-24 12:49:00 2022-03-25 17:30:00 Inpatient U MK CRUZ [facility] [id number] [facility] 2022-03-09 15:00:00 2022-03-09 15:30:15 Office Visit Ricky Dimas [facility] [address] [id number] [facility] 2022-02-23 00:00:00 2022-02-23 00:00:00 Outpatient [facility] [id number] [facility] 2022-02-15 00:00:00 2022-02-15 00:00:00 Outpatient [facility] [id number] [place] 2022-02-05 00:00:00 2022-02-05 00:00:00 Outpatient [facility] [id number] [place] [facility] 2022-02-03 00:00:00 2022-02-03 00:00:00 Outpatient [facility] [id number] [facility] 2022-02-03 00:00:00 2022-02-03 00:00:00 Bob Nielsen, DO: [address], [place] [address] , Ph. [phone] [facility], DR. NIELSEN [id number] [facility] 2022-01-31 10:36:00 2022-01-31 15:30:00 Inpatient GEMA MELCHOR [facility] [id number] [facility] 2022-01-29 12:52:00 2022-01-29 23:59:00 Outpatient REINALDO ASHLEE [facility] LEE [id number] [facility] 2022-01-27 00:00:00 2022-01-27 00:00:00 Outpatient [facility] [id number] [facility] 2022-01-21 00:00:00 2022-01-21 00:00:00 Outpatient [id number] 2022-01-18 00:00:00 2022-01-18 00:00:00 Outpatient [facility] 06 [facility] 2022-01-18 00:00:00 2022-01-18 00:00:00 Outpatient Bob Nielsen [facility] [id number] 2022-01-18 00:00:00 2022-01-18 00:00:00 Bob Nielsen, DO: [address], [place] [address] , Ph. [facility], DR. NIELSEN [id number] [facility] 2022-01-13 00:00:00 2022-01-13 00:00:00 Outpatient [facility] [id number] [facility] 2022-01-13 00:00:00 2022-01-13 00:00:00 Outpatient Bob Nielsen [facility] [id number] 2022-01-13 00:00:00 2022-01-13 00:00:00 Bob Nielsen, DO: [address], [place] [address] , Ph. [phone] [facility], DR. NIELSEN [id number] [facility] 2022-01-10 00:00:00 2022-01-10 00:00:00 Outpatient [facility] [id number] [facility] 2021-11-26 03:04:00 2021-11-26 03:04:00 Outpatient DMG DMG [id number] [facility] 2021-09-16 09:01:00 2021-09-16 09:01:00 Outpatient DMG DMG [id number] [facility] 2021-06-21 16:00:00 2021-06-21 17:00:00 CLARENCE Parisi [id number] [facility] 2021-05-03 00:00:00 2021-05-03 00:00:00 Outpatient ERICKSON_R [facility] [id number] 2021-04-26 08:01:00 2021-04-26 08:01:00 Outpatient DMG DMG [id number] [facility] 2021-03-19 03:35:00 2021-03-19 03:35:00 Outpatient [facility]SON[facility] [id number] 2021-03-19 00:00:00 2021-03-19 00:00:00 Outpatient Bob Nielsen [facility] [id number] 2021-03-19 00:00:00 2021-03-19 00:00:00 Bob Nielsen, DO: [address], [place] [address] , Ph. [facility], DR[facility] NIELSEN [id number] [facility] 2021-02-16 10:04:00 2021-02-16 10:04:00 Outpatient ERPRISCILAON_R [id number] 2021-02-16 00:00:00 2021-02-16 00:00:00 Outpatient Bob Nielsen [facility] [id number] 2021-02-16 00:00:00 2021-02-16 00:00:00 Bob Nielsen, DO: [address] [place] [address] , Ph. [phone] [facility], DR[facility] NIELSEN [id number] [facility] 2021-02-04 03:10:00 2021-02-04 03:10:00 Outpatient ERICKSON_R [id number] 2021-02-04 00:00:00 2021-02-04 00:00:00 Outpatient Bob Nielsen [facility] [id number] 2021-02-04 00:00:00 2021-02-04 00:00:00 Bob Nielsen, DO: [address], [place] [address] , Ph. [facility], DR[facility] NIELSEN [id number] [facility] [facility] 2021-01-12 12:05:00 2021-01-12 12:05:00 Outpatient [facility] 2020-12-08 11:43:00 2020-12-08 11:43:00 Outpatient [facility] 2020-11-13 02:14:00 2020-11-13 02:14:00 Outpatient [facility] 2020-11-13 00:00:00 2020-11-13 00:00:00 Bob Nielsen, DO: [address] [place] [address] , Ph. [phone] [facility], DR. NIELSEN [id number] [facility] 2020-11-13 00:00:00 2020-11-13 00:00:00 Outpatient Bob Nielsen [facility] [id number] 2020-10-31 03:20:00 2020-10-31 03:20:00 Outpatient [facility] 2020-09-27 01:05:00 2020-09-27 01:05:00 Outpatient [facility] 2020-09-27 01:05:00 2020-09-27 01:05:00 Outpatient [facility] 0[facility] 2020-09-17 10:46:00 2020-09-17 10:46:00 Outpatient [facility] 0[facility] [place] 2020-09-17 00:00:00 2020-09-17 00:00:00 Bob Nielsen, DO: [address], [place] [address] , Ph. [phone] [facility], DR[address] NIELSEN [id number] [facility] 2020-09-17 00:00:00 2020-09-17 00:00:00 Outpatient Bob Nielsen [facility] [id number] 2020-08-27 09:48:00 2020-08-27 09:48:00 Outpatient [facility] 2020-08-27 00:00:00 2020-08-27 00:00:00 Bob Nielsen, DO: [address], [place] [address] , Ph. [facility], DR[address] NIELSEN [phone] [facility] 2020-08-27 00:00:00 2020-08-27 00:00:00 Outpatient Bob Nielsen [facility] [id number] 2020-08-25 11:17:00 2020-08-25 11:17:00 Outpatient [facility] 0413 [facility] 2020-08-24 06:31:00 2020-08-24 06:31:00 Outpatient [facility] 0412 [facility] 2020-08-20 10:21:00 2020-08-20 10:21:00 Outpatient MORALES_Delbert [facility] 0408 [facility] 2020-08-20 00:00:00 2020-08-20 00:00:00 Bob Nielsen, DO: [address], [facility], [place] [address] , Ph. [facility], DR[address] NIELSEN [phone] [facility] 2020-08-20 00:00:00 2020-08-20 00:00:00 Outpatient Bob Nielsen [facility] [id number] 2020-08-18 03:18:00 2020-08-18 03:18:00 Outpatient APOLINAR [facility] [address] [facility] Results Test Description Test Time Test Comments Results Resul t Comments Source - PET/CT TUMOR [facility] M[facility] 2023-07-06 10:58:00 [facility] 1955 Sex: M Patient Name: JAREK TORRE Unit No: [id number] EXAMS: CPT CODE: [id number] PET/CT TUMOR SK MIDTH [id number] D[address]ation [address] J9 [address] CT SCAN: Clinical history: Technique: Following the IV administration of 12.83 mCi F-18 FDG, PET scan is performed of the whole body from the level of the skull base inferiorly through the mid thighs. Axial nondiagnostic noncontrast CT images are obtained for anatomic correlation only. Glucose level at radiotracer administration is 88 mg/dL. Comparison: None Head and neck: No abnormal activity identified within the head and neck. There is abnormal low attenuation in the right occipital lobe most compatible with an old infarct. No abnormal mass or adenopathy noted. Chest: No abnormal activity identified within the chest. There are scattered mostly pleural-based nodules. In the left upper lobe laterally there is a 9 mm subpleural nodule with no abnormal metabolic activity. In the right upper lobe laterally there is a 3.7 mm pleural-based nodule with no abnormal metabolic activity. Near the right diaphragm there are 2 nodular areas measuring 4 to 5 mm with no abnormal metabolic activity. Bullous changes are seen hugging the mediastinum and in the right upper lobe posteriorly. No concerning nodules or masses. No consolidation, pneumothorax or effusion. The chest wall is intact. There is no abnormal mass or adenopathy. There are heavy vascular calcifications with no evidence for aneurysm. The heart is not enlarged and there is no pericardial effusion. Abdomen and pelvis: No abnormal activity identified within the abdomen or pelvis. There is expected activity in the GI tract, kidneys, collecting systems and bladder with contamination in the pelvis outside the patient. The liver, spleen, pancreas, adrenals and kidneys are unremarkable. There are gallstones. No bowel obstruction, mass or adenopathy. There are sigmoid diverticuli with no inflammatory changes. The prostate is slightly enlarged. The bladder is intact. Skeletal structures and soft tissues: No abnormal bone or soft tissue activity identified. There is a right subclavian to right common femoral artery stent graft, femoral to femoral stent graft and aortobiiliac stent graft. Impression: 1. No abnormal metabolic activity seen to suggest malignancy. Specifically several predominantly subpleural and pleural diaphragmatic nodules demonstrate no abnormal metabolic activity. 2. If comparison studies are available, an addended report can be [facility] NAME: JAREK TORRE [address] [facility] [address] PHYS: [place] [address] : 1955 AGE: 68 SEX: M LOC: OLIVIAUC PHONE #: [phone] EXAM DATE: 07/05/2023 STATUS: DEP CLI FAX #: [phone] RADIOLOGY NO: PAGE 1 Signed Report (CONTINUED) Patient Name: JAREK TORRE Unit No: [id number] EXAMS: CPT CODE: [id number] PET/CT TUMOR SK BS MIDTH 84128 (Continued) generated. 3. Additional chronic changes in the right upper lobe. 4. Gallstones, diverticulosis, vascular calcifications and extensive grafts noted above. 5. Old right occipital infarct. at 1058 Reported and signed by: Rema Torres M.D. CC: Sergio Stringer MD Technologist: Letha Koo, RT(R); ROBERT GUAJARDO,MRT,ARRT(N) Transcrpt Date/Tm/Trnsp: 07/06/2023 (1058) t.[email or web address] Orig Print D/T: S: 07/06/2023 (3095) [facility] NAME: JAREK TORRE [address] [address] PHYS: [place] [address] : 1955 AGE: 68 SEX: M LOC: SABINE PHONE #: [phone] EXAM DATE: 07/05/2023 STATUS: DEP CLI FAX #: [phone] RADIOLOGY NO: PAGE 2 Signed Report CHEM [id number] 06:06:00* Test Item Value Reference Range Interpretation Comme nts Calcium Lvl (test code = Calcium Lvl) 8.4 8.5-10.5 [facility] AustinTsqiyozMRAABVCRT4582-07-76 06:06:00* Test Item Value Reference Range Interpretation Comme nts Glucose Lvl (test code = Glucose Lvl) 97 70-99 [facility] AustinKmlhtmiFGVVEYZZJP6824-14-60 06:06:00* Test Item Value Reference Range Interpretation Comme nts Segs (test code = Segs) 60.8 45.0-75.0 [facility] AustinPmppnyqGLMJNEYOCY8935-90-67 21:28:00* Test Item Value Reference Range Interpretation Comme nts Anti-Xa Low Molecular Hepari n (test code = Anti-Xa Low Molecular Heparin) 1.88 [facility] AustinJmlezawQNLJAC2443-97-25 14:16:43* Test Item Value Reference Range Interpretation Commjose soria RADRPT (test code = RADRPT) EXAM: MRI BRAIN WITHOUT CONTRASTDATE: 03/19/2023INDICATION: - ams , r/o stroke.COMPARISON: MRI brain dated 03/24/2022 and 01/29/2022.TECHNIQUE: Multiplanar, multisequence MRI of the brain without contrast. IV contrast: None.FINDINGS:Tiny focus of restricted diffusion involving the left parietal lobe (series 202, image 160 and series 203, image 156). Areas of encephalomalacia and gliosis in the right greater than left cerebral hemisphere appears similar to prior examination dated 03/24/2022. Areas of encephalomalacia are most conspicuous in the right posterior frontal and parietal lobes, right occipital lobe and left posterior frontal and parietal lobes. Encephalomalacia and gliosis includes the bilateral perirolandic regions. Sequela of smaller prior lacunar infarct involving right basal ganglia/mosher radiata, left basal ganglia/mosher radiata, left external capsule, right thalamus and bilateral cerebellar hemispheres. Extensive T2/FLAIR hyperintensities within the supratentorial white matter and kamini are nonspecific, favored to represent microvascular ischemic changes. Asymmetric volume loss on the right cerebral hemisphere results in ex vacuo dilatation of the right lateral ventricles. Wallerian degeneration along the course of the right corticospinal tracts.No evidence of acute hemorrhage. No midline shift or downward herniation. Subtle areas of curvilinear susceptibility, and areas of chronic infarction, favored to represent sequela of prior laminar necrosis.The included paranasal sinuses and skull base are unremarkable.IMPRESSION: 1. Tiny focus of restricted diffusion involving the left parietal lobe is consistent with recent ischemic changes. No evidence of superimposed hemorrhage.2. Additional chronic findings with extensive areas of ablation gliosis the representing chronic ischemic change, as described above, are without significant interval change compared to 03/24/2022. [facility]2023-11-05 12:49:00* Test Item Value Reference Range Interpretation Comme [facility] Glucose POC (test code = Glucose POC) 107 70-99 [facility] AustinJntibbzEEJMEEYYOY4666-22-47 12:06:00* Test Item Value Reference Range Interpretation Comme nts Hep A IgM (test code = Hep A IgM) NON-REACTIVE [facility] AustinCHEM [id number] 09:31:00* Test Item Value Reference Range Interpretation Comme nts Glucose Lvl (test code = Glucose Lvl) 57 70-99 [facility]lLLQUZXDKKN4653-84-08 09:31:00* Test Item Value Reference Range Interpretation Comme nts Segs (test code = Segs) 64.3 45.0-75.0 [facility] AND [id number] 05:42:00* Test Item Value Reference Range Interpretation Comme nts UA Spec Grav (test code = UA Spec Grav) 1.010 1 [facility] AustinCARDIAC [id number] 03:23:00* Test Item Value Reference Range Interpretation Comme nts HS Troponin I (test code = H S Troponin I) 19 [facility] XCZWF7614-45-26 03:23:00* Test Item Value Reference Range Interpretation Comme nts Glucose Lvl (test code = Glucose Lvl) 86 70-99 [facility] AustinHdivfenZGFRTGATR1544-66-26 03:23:00* Test Item Value Reference Range Interpretation Comme nts Total Protein (test code = T otal Protein) 6.7 6.4-8.4 [facility] AustinGjebnltXMWEXJYNDK6198-88-25 03:23:00* Test Item Value Reference Range Interpretation Comme nts WBC (test code = WBC) 8.5 3.7-10.4 [facility] AustinBvixwxnOLBFXOYCQR6200-04-65 03:23:00* Test Item Value Reference Range Interpretation Comme nts Coronavirus (COVID-19) NIKKI (test code = Coronavirus (COVID-19) NIKKI) Not Detected 12(03/18/23 10:23 PM) [facility] AustinMnqjdkxJRFJYN2273-53-21 03:23:00* Test Item Value Reference Range Interpretation Comme nts Trig (test code = Trig) [facility] FWQBDYYPX0532-88-42 03:23:00* Test Item Value Reference Range Interpretation Comme nts Hgb A1C (test code = Hgb A1C) 5.8 [facility] AustinEssridjKCTTTR8975-69-66 22:11:21* Test Item Value Reference Range Interpretation Comme nts RADRPT (test code = RADRPT) Radiation Dose CTDIVOL = 0 (mGy): DLP = 623 (mGy-cm)PROCEDURE INFORMATION: Exam: CT Head Without Contrast Exam date and time: 03/31/2022 3:59 PM Age: 66 years old Clinical indication: /right numbness, recent stroke, R/O acute disease TECHNIQUE: Imaging protocol: Computed tomography of the head without contrast. Radiation optimization: All CT scans at this facility use at least one of these dose optimization techniques: automated exposure control; mA and/or kV adjustment per patient size (includes targeted exams where dose is matched to clinical indication); or iterative reconstruction. COMPARISON: BRAIN WO CONTRAST MRI 03/24/2022 4:21 AM RADIATION DOSE METRICS: Total DLP (mGy-cm): 623 FINDINGS: Brain: Periventricular and subcortical hypodensities are noted, consistent with sequelae of chronic microvascular ischemia. Diffuse cerebral atrophy is noted, appropiate for age. Intracranial vascular calcifications are noted. 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 Cerebral ventricles: Ex vacuo dilation of the ventricular system is noted. Paranasal sinuses: Visualized sinuses are unremarkable. No fluid levels. Mastoid air cells: Visualized mastoid air cells are well aerated. Bones/joints: Unremarkable. No acute fracture. Soft tissues: Unremarkable. Vasculature: Known acute/subacute infarcts of the left MCA watershed territory are better seen on the recent MRI. IMPRESSION: No hemorrhagic transformation or significant mass effect of the recent left MCA watershed territory acute/subacute infarcts Malik Jin MD On 03/31/2022 16:09:41; [id number] [facility] ClinicCxlwcilIOPVKKFOV4576-79-05 21:51:00* Test Item Value Reference Range Interpretation Comme nts Glucose Lvl (test code = Glucose Lvl) 73 70-99 [facility] SouthPaftuzcLDSDRXQVKI8826-74-09 21:51:00* Test Item Value Reference Range Interpretation Comme nts WBC (test code = WBC) 9.3 3.7-10.4 [facility]2022-11-17 21:18:00* Test Item Value Reference Range Interpretation Comme nts Glucose POC (test code = Glucose POC) 62 70-99 [facility] SouthPfnahmmPSOQANMCJO2271-06-98 19:15:00* Test Item Value Reference Range Interpretation Comme nts Plav Effect Plt (test code = Plav Effect Plt) 223 [facility]2022-11-11 06:42:00* Test Item Value Reference Range Interpretation Comme nts Glucose Lvl (test code = Glucose Lvl) 85 70-99 [facility] LancasterUihqyibEJGGUYQLF7537-91-41 06:42:00* Test Item Value Reference Range Interpretation Comme nts Glucose Lvl (test code = Glucose Lvl) 85 70-99 [facility] AustinDtegnkjWHDSHSNQMZ4562-60-99 06:42:00* Test Item Value Reference Range Interpretation Comme nts WBC (test code = WBC) 6.2 3.7-10.4 [facility] AustinPARATHYROID UHCTHLH5434-25-86 06:42:00* Test Item Value Reference Range Interpretation Comme nts Ca Ion WB (test code = Ca Ion WB) 1.13 1.05-1.25 [facility]2022-11-10 23:37:00* Test Item Value Reference Range Interpretation Comme nts Glucose POC (test code = Glucose POC) 91 70-99 [facility] AustinMatnmayAIUNIQ0905-70-50 19:40:44* Test Item Value Reference Range Interpretation Comme nts RADRPT (test code = RADRPT) EXAM: CTA BRAINEXAM: CTA NECKDATE: 03/24/2022 6:19INDICATION: - R sided numbnessCOMPARISON: CT angiogram 01/29/2022TECHNIQUE: Rapid acquisition spiral CT images of the brain and neck were obtained between the aortic arch and the cranial vertex during intravenous infusion of iodinated contrast for the purposes of CT angiography. 3-D CT angiographic images are created using MIP technique at the acquisition workstation. The source images are also presented for interpretation. IV contrast: 60 cc Omnipaque 350DLP: 569 mGy-cmFINDINGS:NECK CTA:Aortic arch: The great vessels originate from the aortic arch in the standard configuration. Atherosclerotic changes affect the left subclavian artery origin. There is occlusion of the left vertebral artery origins origin and severe stenosis of the right vertebral artery at its origin.Carotid arteries: Eccentric atherosclerotic changes present in both common carotid arteries. There is some mild calcifications in the carotid bifurcations without stenosis. Mild tandem atherosclerotic changes present in the carotid siphons.Vertebral arteries: There is recapitulation of the left vertebral artery at the C4 level through the collaterals. Retrograde flow from the basilar artery is also noted with good filling of the PICA branch. Right vertebral artery is unremarkable.The soft tissues of the neck and other incidental structures are normal.BRAIN CTA:There has been little important change: Moderate severe atherosclerotic narrowing present in the left M1 segment. Multifocal areas of vlln-pf-hsjbogsq atherosclerotic irregularity present in the anterior circulation. The basilar artery is diminutive with large posterior communicating arteries bilaterally. Some distal stenosis the right RN CHEMICAL DEPENDENCY consistent with the chronic infarct noted on the noncontrast CTThe deep cerebral veins and major venous sinuses are normal.The brain parenchyma and other incidental structures are unremarkable.IMPRESSION: Stable appearing exam. Diffuse intracranial atherosclerotic changes probably most significantly left M1 right T2 segments. 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.(All qualitative and quantitative assessments of carotid bifurcation and proximal internal carotid artery stenosis are made referencing the distal internal carotid artery {NASCET criteria}.) [place] [id number] 14:41:00* Test Item Value Reference Range Interpretation Comme [facility] RADRPT (test code = RADRPT) EXAMINATION: MRI brain without contrastDATE: 03/24/2022INDICATION: Right-sided numbness.FINDINGS:MRI images of the brain compared to similar study dated 01/30/2022.Over the interval, new areas of subcentimeter diffusion restriction have developed in the deep white matter subjacent to the left precentral gyrus and in left parieto-occipital deep white matter. There is probably also a new area in the left precentral gyrus near the hand knob. There are numerous punctate areas in the left watershed distribution which represent resolving changes present on the previous study.There are also new punctate diffusion changes in the left cerebellar white matter and left occipital lobe.Susceptibility weighted images demonstrate no acute hemorrhagic change. Chronic hemosiderin staining in the right basal ganglia associated with volume loss.There are chronic small vessel ischemic changes in the central kamini and the periventricular white matter. There are old cortical ischemic changes in the right postcentral gyrus and parietal lobe and in the right occipital lobe. Is moderate global volume loss.IMPRESSION:New multifocal areas of diffusion change in the left MCA deep watershed territory and in the territory of the left superior cerebellar artery and left posterior cerebral artery. [facility] [id number] 08:57:00* Test Item Value Reference Range Interpretation Comme [facility] Glucose Lvl (test code = Glucose Lvl) 93 70-99 [facility] AustinZdtyjwpCYMCZAKKD5401-39-84 08:57:00* Test Item Value Reference Range Interpretation Comme nts Total Protein (test code = T otal Protein) 5.7 6.4-8.4 [facility] AustinDRUG UFYCBL5734-49-44 08:57:00* Test Item Value Reference Range Interpretation Comme nts U Amph Scr (test code = U Amph Scr) Negative *NA*(03/24/22 2:57 AM) [facility] AustinRksnwhzFCFESBFYPF6838-22-14 08:57:00* Test Item Value Reference Range Interpretation Comme nts ASA Effect Plt (test code = ASA Effect Plt) 635 [facility] AustinWjijsjxRJOAFHVIZD9500-02-26 08:57:00* Test Item Value Reference Range Interpretation Comme nts Coronavirus (COVID-19) NIKKI (test code = Coronavirus (COVID-19) NIKKI) Not Detected (03/24/22 2:57 AM) [facility] AustinFmzabenTMMFLJ2645-51-29 08:57:00* Test Item Value Reference Range Interpretation Comme nts Trig (test code = Trig) 75 [facility] ITPDYQPPT6825-96-87 08:57:00* Test Item Value Reference Range Interpretation Comme nts Hgb A1C (test code = Hgb A1C) 6.3 [facility] AND OYVLM5117-76-37 08:57:00* Test Item Value Reference Range Interpretation Comme nts UA Color (test code = UA Color) Yellow *NA*(03/24/22 2:57 AM) [facility] AustinCHEM [id number] 06:55:00* Test Item Value Reference Range Interpretation Comme nts Glucose Lvl (test code = Glucose Lvl) 133 70-99 [facility] AustinOhannvnRWBMGZBSQJ5529-55-40 06:55:00* Test Item Value Reference Range Interpretation Comme nts WBC (test code = WBC) 7.1 3.7-10.4 [facility] LancasterannCHEM HMHNL5108-98-01 09:06:00* Test Item Value Reference Range Interpretation Comme nts Magnesium Lvl (test code = M agnesium Lvl) 2.4 1.8-2.4 [facility] AustinCHEM ICBMK5542-96-59 07:13:00* Test Item Value Reference Range Interpretation Comme nts Glucose Lvl (test code = Glucose Lvl) 123 70-99 [facility] AustinDakcptcSNQCIEIYJB8240-01-69 07:13:00* Test Item Value Reference Range Interpretation Comme nts WBC (test code = WBC) 7.3 3.7-10.4 [facility] HermannDRUG [id number] 20:48:00* Test Item Value Reference Range Interpretation Comme nts UDS Note (test code = UDS Note) See Note (01/29/22 3:48 PM) [facility] LancasterHpdhrzkAAKLCO0299-91-72 20:48:00* Test Item Value Reference Range Interpretation Comme nts Trig (test code = Trig) 126 [facility] AustinSPECIAL WTJXNNWSQ2217-34-25 20:48:00* Test Item Value Reference Range Interpretation Comme nts Hgb A1C (test code = Hgb A1C) 6.1 [facility] [id number] 20:48:00* Test Item Value Reference Range Interpretation Comme nts UA Color (test code = UA Color) Light Yellow (01/29/22 3:48 PM) [facility] AND [id number] 18:57:00* Test Item Value Reference Range Interpretation Comme nts UA Color (test code = UA Color) Yellow *NA*(01/29/22 1:57 PM) [facility] AustinCARDIAC [id number] 18:41:00* Test Item Value Reference Range Interpretation Comme nts Total CK (test code = Total CK) 52 12-191 [facility] AustinCHEM [id number] 18:41:00* Test Item Value Reference Range Interpretation Comme nts Glucose Lvl (test code = Glucose Lvl) 100 70-99 [facility] AustinIkhrmloGRTXBZKRZM6471-96-91 18:41:00* Test Item Value Reference Range Interpretation Comme nts Segs (test code = Segs) 71.7 45.0-75.0 [facility] AustinComprehensive metabolic 2000 panel - Serum or Gwauoa4476-97-73 00:00:00* Test Item Value Reference Range Interpretation Comme nts Glucose [Mass/volume] in Serum or Plasma (test code = 2345-7) 86 mg/dL 65-99 Urea nitrogen [Mass/volume] in Serum or Plasma (test code = 3094-0) 10 mg/dL 8-27 Creatinine [Mass/volume] in Serum or Plasma (test code = 2160-0) 0.76 mg/dL 0.76-1.27 Glomerular filtration rate/1.73 sq M.predicted among non-blacks [Volume Rate/Area] in Serum, Plasma or Blood by Creatinine-based formula (CKD-EPI) (test code = 80472-1) 96 mL/min/1.73 >59 Glomerular filtration rate/1.73 sq M.predicted among blacks [Volume Rate/Area] in Serum, Plasma or Blood by Creatinine-based formula (CKD-EPI) (test code = 87755-0) 111 mL/min/1.73 >59 Urea nitrogen/Creatinine [Mass Ratio] in Serum or Plasma (test code = 3097-3) 13 10-24 Sodium [Moles/volume] in Serum or Plasma (test code = 2951-2) 143 mmol/L 134-144 Potassium [Moles/volume] in Serum or Plasma (test code = 2823-3) 4.4 mmol/L 3.5-5.2 Chloride [Moles/volume] in Serum or Plasma (test code = 2074-0) 104 mmol/L 96-106 Carbon dioxide, total [Moles/volume] in Serum or Plasma (test code = 2027-) 25 mmol/L 20-29 Calcium [Mass/volume] in Serum or Plasma (test code = 10935-8) 9.6 mg/dL 8.6-10.2 Protein [Mass/volume] in Serum or Plasma (test code = 2885-2) 7.2 g/dL 6.0-8.5 Albumin [Mass/volume] in Serum or Plasma (test code = 1751-7) 4.2 g/dL 3.8-4.8 Globulin [Mass/volume] in Serum by calculation (test code = 25965-1) 3.0 g/dL 1.5-4.5 Albumin/Globulin [Mass Ratio ] in Serum or Plasma (test code = 1759-0) 1.4 1.2-2.2 Bilirubin.total [Mass/volume ] in Serum or Plasma (test code = 1974-) 0.4 mg/dL 0.0-1.2 Alkaline phosphatase [Enzymatic activity/volume] in Serum or Plasma (test code = 6768-6) 157 IU/L 44-121 H Aspartate aminotransferase [Enzymatic activity/volume] in Serum or Plasma (test code = 1920-8) 13 IU/L 0-40 Alanine aminotransferase [Enzymatic activity/volume] in Serum or Plasma (test code = 1742-6) 7 IU/L 0-44 [facility]Hemoglobin.total in Blood 2021-02-17 00:00:00* Test Item Value Reference Range Interpretation Comme nts Hemoglobin A1c/Hemoglobin.to mingo in Blood (test code = 4548-4) 5.8 % 4.8-5.6 H [facility] Clinicsrequest [id number] 00:00:00* Test Item Value Reference Range Interpretation Comme nts request problem (test code = request problem) tnp [facility]CBC W Auto Differential panel - [id number] 00:00:00* Test Item Value Reference Range Interpretation Comme nts Leukocytes [#/volume] in Blo od by Automated count (test code = 6690-2) 7.0 x10e3/uL 3.4-10.8 Erythrocytes [#/volume] in Blood by Automated count (test code = 789-8) 4.26 x10e6/uL 4.14-5.80 Hemoglobin [Mass/volume] in Blood (test code = 718-7) 13.8 g/dL 13.0-17.7 Hematocrit [Volume Fraction] of Blood by Automated count (test code = 4544-3) 39.0 % 37.5-51.0 Erythrocyte mean corpuscular volume [Entitic volume] by Automated count (test code = 787-2) 92 fL 79-97 Erythrocyte mean corpuscular hemoglobin [Entitic mass] by Automated count (test code = 785-6) 32.4 pg 26.6-33.0 Erythrocyte mean corpuscular hemoglobin concentration [Mass/volume] by Automated count (test code = 786-4) 35.4 g/dL 31.5-35.7 Erythrocyte distribution wid th [Ratio] by Automated count (test code = 788-0) 13.1 % 11.6-15.4 Platelets [#/volume] in Bloo d by Automated count (test code = 777-3) 272 x10e3/uL 150-450 Neutrophils/100 leukocytes i n Blood by Automated count (test code = 770-8) 62 % not estab. Lymphocytes/100 leukocytes i n Blood by Automated count (test code = 736-9) 30 % not estab. Monocytes/100 leukocytes in Blood by Automated count (test code = 5905-5) 5 % not estab. Eosinophils/100 leukocytes i n Blood by Automated count (test code = 713-8) 2 % not estab. Basophils/100 leukocytes in Blood by Automated count (test code = 706-2) 1 % not estab. 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Comprehensive [facility] 2000 panel - Serum or [id number] 00:00:00* Test Item Value Reference Range Interpretation Comme nts Glucose [Mass/volume] in Ser um or Plasma (test code = 2345-7) 107 mg/dL 65-99 H Urea nitrogen [Mass/volume] in Serum or Plasma (test code = 3094-0) 9 mg/dL 8-27 Creatinine [Mass/volume] in Serum or Plasma (test code = 2160-0) 0.96 mg/dL 0.76-1.27 Glomerular filtration rate/1.73 sq M.predicted among non-blacks [Volume Rate/Area] in Serum, Plasma or Blood by Creatinine-based formula (CKD-EPI) (test code = 01941-0) 83 mL/min/1.73 >59 Glomerular filtration rate/1.73 sq M.predicted among blacks [Volume Rate/Area] in Serum, Plasma or Blood by Creatinine-based formula (CKD-EPI) (test code = 50932-6) 96 mL/min/1.73 >59 Urea nitrogen/Creatinine [Ma ss Ratio] in Serum or Plasma (test code = 3097-3) 9 10-24 L Sodium [Moles/volume] in Ser um or Plasma (test code = 2951-2) 142 mmol/L 134-144 Potassium [Moles/volume] in Serum or Plasma (test code = 2823-3) 4.3 mmol/L 3.5-5.2 Chloride [Moles/volume] in Serum or Plasma (test code = 5-0) 105 mmol/L 96-106 Carbon dioxide, total [Moles/volume] in Serum or Plasma (test code = 2027-9) 25 mmol/L 20-29 Calcium [Mass/volume] in Ser um or Plasma (test code = 38520-0) 9.5 mg/dL 8.6-10.2 Protein [Mass/volume] in Ser um or Plasma (test code = 2885-2) 7.3 g/dL 6.0-8.5 Albumin [Mass/volume] in Ser um or Plasma (test code = 1751-7) 4.4 g/dL 3.8-4.8 Globulin [Mass/volume] in Serum by calculation (test code = 28980-7) 2.9 g/dL 1.5-4.5 Albumin/Globulin [Mass Ratio ] in Serum or Plasma (test code = 1759-0) 1.5 1.2-2.2 Bilirubin.total [Mass/volume ] in Serum or Plasma (test code = 1974-) 0.6 mg/dL 0.0-1.2 Alkaline phosphatase [Enzymatic activity/volume] in Serum or Plasma (test code = 6768-6) 148 IU/L 39-117 H Aspartate aminotransferase [Enzymatic activity/volume] in Serum or Plasma (test code = 1920-8) 13 IU/L 0-40 Alanine aminotransferase [Enzymatic activity/volume] in Serum or Plasma (test code = 1742-6) 11 IU/L 0-44 [facility] HospitalLipid 1996 panel - Serum or [id number] 00:00:00* Test Item Value Reference Range Interpretation Comme nts Cholesterol [Mass/volume] in Serum or Plasma (test code = 2093-3) 218 mg/dL 100-199 H Triglyceride [Mass/volume] i n Serum or Plasma (test code = 2571-8) 140 mg/dL 0-149 Cholesterol in HDL [Mass/vol ume] in Serum or Plasma (test code = 2085-9) 35 mg/dL >39 L Cholesterol in VLDL [Mass/vo lume] in Serum or Plasma by calculation (test code = 01396-4) 26 mg/dL 5-40 Cholesterol in LDL [Mass/vol ume] in Serum or Plasma by calculation (test code = 10881-8) 157 mg/dL 0-99 H Laboratory comment [Text] in Report Narrative (test code = 15390-6) 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Hemoglobin A1c/Hemoglobin.total in Blood 2020-08-21 00:00:00* Test Item Value Reference Range Interpretation Comme nts Hemoglobin A1c/Hemoglobin.to mingo in Blood (test code = 4548-4) 5.9 % 4.8-5.6 H Glucose mean value [Mass/vol ume] in Blood Estimated from glycated hemoglobin (test code = 01097-9) 123 mg/dL [facility] HospitalThyrotropin [Units/volume] in Serum or Plasma by Detection limit <= 0.005 mIU/[id number] 00:00:00* Test Item Value Reference Range Interpretation Comme nts Thyrotropin [Units/volume] i n Serum or Plasma by Detection limit <= 0.005 mIU/L (test code = 17289-4) 2.940 uIU/mL 0.450-4.500 [facility] HospitalProstate specific Ag [Mass/volume] in Serum or [id number] 00:00:00* Test Item Value Reference Range Interpretation Comme nts Prostate specific Ag [Mass/v olume] in Serum or Plasma (test code = 2857-1) 1.3 NG/mL 0.0-4.0 [facility] W Auto Differential panel - [id number] 00:00:00* Test Item Value Reference Range Interpretation Comme nts Leukocytes [#/volume] in Blo od by Automated count (test code = 6690-2) 7.0 x10e3/uL 3.4-10.8 Erythrocytes [#/volume] in Blood by Automated count (test code = 789-8) 4.26 x10e6/uL 4.14-5.80 Hemoglobin [Mass/volume] in Blood (test code = 718-7) 13.8 g/dL 13.0-17.7 Hematocrit [Volume Fraction] of Blood by Automated count (test code = 4544-3) 39.0 % 37.5-51.0 Erythrocyte mean corpuscular volume [Entitic volume] by Automated count (test code = 787-2) 92 fL 79-97 Erythrocyte mean corpuscular hemoglobin [Entitic mass] by Automated count (test code = 785-6) 32.4 pg 26.6-33.0 Erythrocyte mean corpuscular hemoglobin concentration [Mass/volume] by Automated count (test code = 786-4) 35.4 g/dL 31.5-35.7 Erythrocyte distribution wid th [Ratio] by Automated count (test code = 788-0) 13.1 % 11.6-15.4 Platelets [#/volume] in Bloo d by Automated count (test code = 777-3) 272 x10e3/uL 150-450 Neutrophils/100 leukocytes i n Blood by Automated count (test code = 770-8) 62 % not estab. Lymphocytes/100 leukocytes i n Blood by Automated count (test code = 736-9) 30 % not estab. Monocytes/100 leukocytes in Blood by Automated count (test code = 5905-5) 5 % not estab. Eosinophils/100 leukocytes i n Blood by Automated count (test code = 713-8) 2 % not estab. Basophils/100 leukocytes in Blood by Automated count (test code = 706-2) 1 % not estab. 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 HospitalComprehensive metabolic 2000 panel - Serum or [id number] 00:00:00* Test Item Value Reference Range Interpretation Comme nts Glucose [Mass/volume] in Ser um or Plasma (test code = 2345-7) 107 mg/dL 65-99 H Urea nitrogen [Mass/volume] in Serum or Plasma (test code = 3094-0) 9 mg/dL 8-27 Creatinine [Mass/volume] in Serum or Plasma (test code = 2160-0) 0.96 mg/dL 0.76-1.27 Glomerular filtration rate/1.73 sq M.predicted among non-blacks [Volume Rate/Area] in Serum, Plasma or Blood by Creatinine-based formula (CKD-EPI) (test code = 70722-0) 83 mL/min/1.73 >59 Glomerular filtration rate/1.73 sq M.predicted among blacks [Volume Rate/Area] in Serum, Plasma or Blood by Creatinine-based formula (CKD-EPI) (test code = 93700-4) 96 mL/min/1.73 >59 Urea nitrogen/Creatinine [Ma ss Ratio] in Serum or Plasma (test code = 3097-3) 9 10-24 L Sodium [Moles/volume] in Ser um or Plasma (test code = 2951-2) 142 mmol/L 134-144 Potassium [Moles/volume] in Serum or Plasma (test code = 2823-3) 4.3 mmol/L 3.5-5.2 Chloride [Moles/volume] in Serum or Plasma (test code = 5-0) 105 mmol/L 96-106 Carbon dioxide, total [Moles/volume] in Serum or Plasma (test code = 2027-9) 25 mmol/L 20-29 Calcium [Mass/volume] in Ser um or Plasma (test code = 97192-4) 9.5 mg/dL 8.6-10.2 Protein [Mass/volume] in Ser um or Plasma (test code = 2885-2) 7.3 g/dL 6.0-8.5 Albumin [Mass/volume] in Ser um or Plasma (test code = 1751-7) 4.4 g/dL 3.8-4.8 Globulin [Mass/volume] in Serum by calculation (test code = 57237-4) 2.9 g/dL 1.5-4.5 Albumin/Globulin [Mass Ratio ] in Serum or Plasma (test code = 1759-0) 1.5 1.2-2.2 Bilirubin.total [Mass/volume ] in Serum or Plasma (test code = 1974-2) 0.6 mg/dL 0.0-1.2 Alkaline phosphatase [Enzymatic activity/volume] in Serum or Plasma (test code = 6768-6) 148 IU/L 39-117 H Aspartate aminotransferase [Enzymatic activity/volume] in Serum or Plasma (test code = 1920-8) 13 IU/L 0-40 Alanine aminotransferase [Enzymatic activity/volume] in Serum or Plasma (test code = 1742-6) 11 IU/L 0-44 [facility] ClinicsLipid 1996 panel - Serum or [id number] 00:00:00* Test Item Value Reference Range Interpretation Comme nts Cholesterol [Mass/volume] in Serum or Plasma (test code = 2093-3) 218 mg/dL 100-199 H Triglyceride [Mass/volume] i n Serum or Plasma (test code = 2571-8) 140 mg/dL 0-149 Cholesterol in HDL [Mass/vol ume] in Serum or Plasma (test code = 2085-9) 35 mg/dL >39 L Cholesterol in VLDL [Mass/vo lume] in Serum or Plasma by calculation (test code = 37396-6) 26 mg/dL 5-40 Cholesterol in LDL [Mass/vol ume] in Serum or Plasma by calculation (test code = 89075-4) 157 mg/dL 0-99 H Laboratory comment [Text] in Report Narrative (test code = 03403-3) 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Hemoglobin A1c/Hemoglobin.total in Blood 2020-08-21 00:00:00* Test Item Value Reference Range Interpretation Comme nts Hemoglobin A1c/Hemoglobin.to mingo in Blood (test code = 4548-4) 5.9 % 4.8-5.6 H Glucose mean value [Mass/vol ume] in Blood Estimated from glycated hemoglobin (test code = 40041-9) 123 mg/dL [facility] HospitalThyrotropin [Units/volume] in Serum or Plasma by Detection limit <= 0.005 mIU/[id number] 00:00:00* Test Item Value Reference Range Interpretation Comme nts Thyrotropin [Units/volume] i n Serum or Plasma by Detection limit <= 0.005 mIU/L (test code = 88353-4) 2.940 uIU/mL 0.450-4.500 [facility] HospitalProstate specific Ag [Mass/volume] in Serum or [id number] 00:00:00* Test Item Value Reference Range Interpretation Comme nts Prostate specific Ag [Mass/v olume] in Serum or Plasma (test code = 2857-1) 1.3 NG/mL 0.0-4.0 [facility] History and Physical Notes Date/Time Note Provider Source 2022-03-25 23:30:00 Fauzia Callahan MD: Mk Suarez MD: Erick SIMMONS Kyrillos MD: MODIFYEvent Display: History and PhysicalAuthored Date: [id number] and Physical Primary Team Name:Team BTeam Contact Info:[id number] Contact info:Family contact info: Code Status: Full Resuscitation Chief Complaint: numbness History of Present Illness: Jarek Torre is a 66 Years Male with a PMH of R MCA infarct w/ residual LUE weakness, DC s/p stents not on AP. Patient was last admitted to stroke service on 01/28/22 and found to have a L MCA distribution stroke with L M1 stenosis and old P1 occlusion. 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 Patient is admitted as a transfer for new onset R sided numbness. He reports this started 2 days ago and he noticed his speech was more slurred. This numbness and dysarthria have persisted since. He reports that he had been taking DAPT until he ran out of asa 1 month ago so he has only been taking plavix daily; he denies any missed doses. He still smokes 1 ppd but denies any etoh or illicit drug use. He denies any weakness, vision/gait changes, or tingling sensation. He states it is present in his arm and leg but worse in the hand. Review of Systems: Constitutional Symptoms: no fever, no weight loss, no weight gain, no fatigue, no malaiseEyes: no diplopia, no blurred vision, no redness, no discharge, no loss of visionEars, Nose, Mouth, Throat: no dysphagia, no odynophagia, no otalgia, no deafness, no rhinorrheaCardiovascular: no chest pain, no SOB, no MEDRANO, no orthopnea, no PND, exercise tolerated, no palpitationsRespiratory: same as CVS, no cough, no hemoptysisGastrointestinal: no NVD, no BPR, no dark stool, no constipation, no abdominal painGenitourinary: no dysuria, no frequency, no urgency, no nocturia, no incontinenceMusculoskeletal: no arthralgia, no myalgia,Integumentary: (skin and/or breast): no rash, no hives, no breast pain, no mass, no nipple dcNeurological: no weakness, no headache, no seizure, no dizziness, no tingling, + numbnessPsychiatric: no anxiety, no depression, no insomniaEndocrine: no polyuria, no polydipsia, no fatigue, no weight loss, no weight gain, no cold or heat intolerance, no palpitationsHematologic/Lymphatic: no bleeding, no bruising, no edema, no lumps (axilla groin neck)Allergic/Immunologic: no rash, no allergies, no fever, no chills Problem List/Past Medical History: Ongoing Hyperlipidemia, unspecified Procedure/Surgical History: Stent replacement Social History: Alcohol Current, Type Beer, Liquor. Frequency: 1-2 times per month. Last use: 30 days ago. Previous treatment: None. Electronic Cigarette/Vaping Electronic Cigarette Use: Never. Employment/School Status: Disabled. Substance Abuse Use: None. Tobacco Use: Current every day smoker. Type: Cigarettes. 1 per day. Started age 15.0 Years. Previous treatment: None. Ready to change: No. Tobacco smoke exposure: None. Did the Patient Smoke Cigarettes Anytime During the Last 365 Days? Yes. Cessation Counseling Provided? Yes. Allergies: No Known Medication Allergies Home Medications: aspirin 81 mg tablet, chewable, 81 mg= 1 tab, PO, Daily atorvastatin 40 mg oral tablet, 80 mg= 2 tab, PO, Bedtime clopidogrel 75 mg oral tablet, 75 mg= 1 tab, PO, Daily Physical Exam: Vitals and Measurements T: 97.6 F (Oral) HR: 47 (Apical) RR: 18 BP: 143/65 SpO2: 99% WT: 57.409 kg BMI: 20.43 General: well nourished, laying in bed, appears comfortable HEENT: NCAT, anicteric sclera, posterior pharynx clear, mucus membranes moistCV: regular rate, intact peripheral pulsesPulm: breathing comfortably, no wheezing, symmetric chest expansionAbd: soft, non-tender, non-distendedExt: skin clear, no rashes, no edema Neurology:Mental Status: A&O to self, place, and month, good concentration; normal fund of knowledge and memoryLanguage: intact fluency, comprehension, naming, and repetitionSpeech: no dysarthriaCN: Pupils 3 mm BL briskly reactive bilaterally, EOMI, no nystagmus, full VF; R facial asymmetry , facial sensation intact; auditory acuity intact; tongue midline, palate elevates symmetricallyMotor: AG throughout, no drift, normal tone, full ROMSensory: 50% decrement in light touch in R extremities, reports completely numb on palm, no extinctionCoordination: no dysmetria on FTN or HTS bilaterallyGait: deferred Pre-Morbid MRS1-No significant disability and can perform usual duties NIH Stroke Scale (NIHSS) 1a. Level of Consciousness; 0-alert 1-drowsy 2-stupor 3-coma 1b. LOC Questions month and age; 0-both 1-one 2-neither 1c. 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 Best Gaze; 0-nl 1-partial 2-forced gaze 3. Visual [place]; 0-No visual loss. 1-Partial hemianopia 2-Complete 3-Bilateral 4. Facial Palsy; 0-none 1-minor 2-partial 3-complete 5. Motor - R arm; 0-No drift 1-Drift 2-Some antigravity 3-No antigravity 4-No movement 6. Motor - R leg; 0-No drift 1-Drift 2-Some antigravity 3-No antigravity 4-No movement 7. Motor - L arm; 0-No drift 1-Drift 2-Some antigravity 3-No antigravity 4-No movement 8. Motor - L leg; 0-No drift 1-Drift 2-Some antigravity 3-No antigravity 4-No movement 9. Limb Ataxia; 0 absent 1 - 1limb 2 - 2 limbs 110. Sensory; 0-nl 1-partial loss 2-dense loss 11. Best Language; 0-nl 1-mild/mod 2-severe 3-mute 112. Dysarthria; 0-nl 1-mild/mod 2-severe x-untestable 13. Extinction and Inattention (formerly Neglect); 0-none 1-partial 2-complete 2Total Items left blank are understood to score 0 Pertinent Labs: Labs (Last four charted values)WBC 7.6 (MAR 24)Hgb L 11.9 (MAR 24)Hct L 34.2 (MAR 24)Plt 168 (MAR 24)Na 144 (MAR 24)K 3.9 (MAR 24)CO2 L 20 (MAR 24)Cl H 117 (MAR 24)Cr 0.80 (MAR 24)BUN 10 (MAR 24)Glucose Random 93 (MAR 24)Ca L 7.9 (NOV 10) Pertinent Imaging: Imaging Studies (last 36 hours)(none) Assessment/Plan: A&P: Jarek Torre is a 66 Years Male with a PMH of R MCA infarct w/ residual LUE weakness, L MCA infarct, DC s/p stents not on AP. Patient was last admitted to stroke service on 01/28/22 and found to have a L MCA distribution stroke with L M1 stenosis and old P1 occlusion. He is here for new onset R extremity numbness and slurred speech. Will obtain stroke workup. Given lack of recent infections and persistence of symptoms in the setting of not being on asa 81 for the past month, this seems likely to be a new small acute infarct. CTH shows old encephalomalacia in R MCA territory and chronic L MCA changes. The following Conditions are Present on Arrival to the Hospital CNSCerebral infarction due to embolism of left middle cerebral artery Cerebral atherosclerosis Acuity: AcuteSuspected Etiology: ICAD- Admit to stroke - Start ASA, plavix- ARU, PRU- Continue Atorvastatin - Hold Aspirin until 24 hour post tPA neuroimaging is stable and without evidence of bleeding - Blood pressure control, sys goal- MRI brain - TTE - A1c, lipid panel - PT/OT/ST Dysarthria Dysphagia following cerebral infarction - NPO until cleared by swallow eval - ST RESP- Stable on RA CVEssential hypertension - BP control, goal SBP - Titrate oral agents Hyperlipidemia, unspecified - Statin for goal LDL RENALCKD Stage 1 (GFR>90) - Gentle hydration - Avoid nephrotoxic agents - Replete - Monitor labs ENDOpending A1C HEME Anemia of Chronic Disease - Monitor - Transfuse for Hb IDPossible UTI - UA pending PNA, possible aspiration - Chest PT - NPO - Monitor NutritionProtein-Calorie Malnutrition - Dietitian consult Prophylaxis DVT: SCDs, SubQ heparin GI: N/A Bowel regimen: senna Diet: NPO Code Status: Full CodeDispo: pending Diet: NPO Code Status: Full Code Dispo: pending ACUTE STROKE BENCHMARKS:Time Patient was Last Seen Normal rrival Time 03/24 0036Stroke Team Evaluation Time 0045Direct to Scanner?NoCT Head Read [id number] Scanner noIf not a candidate for IV tPA, why? Outside of windowDelays in this process:None Fauzia Callahan, EFRAIN-3 | [facility]rologyP[facility] [place] Right sided numbness (R20.0) Disposition I have personally evaluated the patient. I have reviewed the resident 's note detailed above. I agree with the resident's findings, assessment and plan as outlined in the note as detailed below. Mk Cruz MDElectronically Signed: 03/24/22 19:20 [facility] 2022-03-25 23:30:00 Mk Cruz D: PERFORMEvent Display: History and PhysicalAuthored Date: [id number] stroke likely in the setting of poorly controlled risk factors and medication non adherence. Etiology likely ICAD but he does have a small left cerbellar infarct putting cardioembolic on the DDX. Will need Linq for arrhythmia monitoring.Mk Cruz MDElectronically Signed: 03/24/22 19:22 [facility] Notes Date/Time Note Provider Source 2023-12-22 18:20:00 EXAM: MRI BRAIN WITHOUT CONTRAST DATE: 12/22/2023 INDICATION: - eval for left mca stroke. COMPARISON: MR brain 09/13/2023. TECHNIQUE: Multiplanar, multisequence MRI of the brain without contrast. IV contrast: None. FINDINGS: Severely motion degraded examination. Possible diffusion restriction with associated mild signal dropout on ADC within the peripheral left occipital lobe (series 2, image 14 and series 250, image 13) may represent subacute/acute on chronic infarct. Areas of encephalomalacia and gliosis consistent with chronic infarction are seen in the right greater than left parieto-occipital lobes. Extensive areas of gliosis associated areas of cortical encephalomalacia are seen in the bilateral frontal and parietal lobes likely representing chronic ischemic changes. Scattered areas of encephalomalacia are seen in the basal ganglia and mosher radiata. T2/FLAIR hyperintense signal abnormalities consistent with chronic microangiopathic change in the supratentorial white matter, basal ganglia and kamini. Smaller chronic infarcts in the bilateral cerebellar hemispheres. Wallerian degeneration in the right of the left corticospinal tracts and clearing along the cerebral peduncles. Associated volume loss with ex vacuo dilatation of the lateral and third ventricles. The basal cisterns are patent. No evidence of acute hemorrhage. Subtle areas of curvilinear susceptibility in areas of chronic infarction favored to represent prior laminar necrosis. IMPRESSION: 1. Possible diffusion restriction with associated mild signal dropout on ADC within the peripheral left occipital lobe may represent acute/subacute on chronic infarct. 2. Multifocal chronic infarcts in the supratentorial and infratentorial parenchyma as described above. Critical finding of above impression was communicated to and acknowledged by Dr. Franks via telephone at 12/22/2023 19:27 by Agnes Rankin RES. ID SECTION: Neuro [facility] 2023-12-22 11:28:20 EXAMINATION: CT head without contrast DATE: 12/21/2023 INDICATION: Stroke. FINDINGS: Noncontrast CT images of the head are performed at an outside institution submitted for reinterpretation following transfer. Comparison is made to magnetic resonance imaging study dated 09/13/2023. The overall appearance of the exam is similar. I do not see any acute hypodensity or hemorrhage. There are extensive chronic changes in the periventricular/deep white matter of the left hemisphere and some watershed ischemic changes in the left parietal convexity. There are similar deep white matter changes in the right hemisphere along with chronic parenchymal ischemic changes in the right parietal lobe, right occipital lobe, and right basal ganglia. Moderate global volume loss. IMPRESSION: No new hypodensities in the left hemisphere. No intracranial hemorrhage. [facility] 2023-12-22 11:28:20 EXAM: CTA BRAIN EXAM: CTA NECK DATE: 12/21/2023 INDICATION: Evaluate for left MCA stroke COMPARISON: CT angiogram head and neck, 09/13/2023 moderate TECHNIQUE: Rapid acquisition spiral CT images of the brain and neck were obtained between the aortic arch and the cranial vertex during intravenous infusion of iodinated contrast for the purposes of CT angiography. Images obtained at an outside hospital and some following transfer. IV contrast: 100 mL Omnipaque 350 DLP: 1061 mGy-cm FINDINGS: NECK CTA: The great vessel origins are out of the [id number] on this study. Cervical vessels are essentially unchanged. Atherosclerotic plaques are present in the left common carotid artery with mild stenosis and there is irregularity in the left carotid bifurcation is eccentric plaque but only minimal narrowing. Soft plaque with mild stenosis present in the right internal carotid artery origin. Irregularity both carotid siphons with [id number] narrowing. Severe stenosis the right vertebral artery origin and scattered areas of irregularity in the right V1 and proximal V2 segments. There is complete occlusion of the left vertebral artery, with reconstitution by branches from thyrocervical trunk at the C4 level. There is extensive atherosclerotic plaque in the left subclavian origin with moderate stenosis. BRAIN CTA: Over the interval, the previously described area of narrowing in the distal left M1 segment has progressed to complete occlusion. There is leptomeningeal collateral backfilling of the left sylvian branches. The remainder the intracranial circulation is stable. There are mild areas of irregularity in the right M1 segment. There are moderate stenosis in the right P2 segment. IMPRESSION: Recent complete occlusion of the distal M1 segment Diffuse intracranial and extracranial atherosclerotic changes as described are otherwise stable. (All qualitative and quantitative assessments of carotid bifurcation and proximal internal carotid artery stenosis are made referencing the distal internal carotid artery {NASCET criteria}.) [facility] 2023-12-22 06:05:00 EXAM: XR ABDOMEN 1 VIEW DATE: 12/22/2023 6:05 INDICATION: Tube placement - MRI screen, AMS ADDITIONAL INFORMATION: None. COMPARISON: None. TECHNIQUE: AP view of the abdomen. FINDINGS: Lines and tubes: None. Lower thorax: Unremarkable where visualized. Bowel: Nonobstructive bowel gas pattern. No abnormal calcifications. Multiple surgical clips project over the bilateral hips. Note made of contrast in the urinary bladder from prior CT study. Bones: No acute osseous abnormality IMPRESSION: 1. No acute abnormality 2. Multiple surgical clips project over bilateral hips [facility] 2023-12-22 06:05:00 EXAM: XR CHEST 1 VIE W DATE: 12/22/2023 6:05 INDICATION: - eval for MRI screen COMPARISON: Chest radiograph dated 12/21/2023 TECHNIQUE: AP chest FINDINGS: Cardiac loop recorder projects over the left lower chest. No focal consolidation. No pleural effusions or pneumothorax. Cardiomediastinal silhouette is within normal limits. Note made of aortic arch calcifications. No acute osseous abnormality. Soft tissues are within normal limits. IMPRESSION: 1. No acute abnormality 2. Cardiac loop recorder projects over the left lower chest [facility] 2023-09-13 15:02:00 Radiation Dose CTDIV OL = 0 (mGy): DLP = 1912 (mGy-cm) PROCEDURE INFORMATION: Exam: CTA Head Without And With Contrast, Arteriography Exam date and time: 09/13/2023 3:02 PM Age: 68 years old Clinical indication: /eval stenosis given recent stroke TECHNIQUE: Imaging protocol: Computed tomographic angiography of the head without and with contrast. Exam focused on the arteries. 3D rendering (Not supervised by radiologist): MIP and/or 3D reconstructed images were created by the technologist. Software analysis: LVO algorithm analysis was applied to this CTA data. AI analysis results were neither submitted to nor interpreted by this radiologist. Radiation optimization: All CT scans at this facility use at least one of these dose optimization techniques: automated exposure control; mA and/or kV adjustment per patient size (includes targeted exams where dose is matched to clinical indication); or iterative reconstruction. Contrast material: OMNIPAQUE 350; Contrast volume: 65 ml; Contrast route: INTRAVENOUS (IV); COMPARISON: BRAIN/NECK CTA 03/18/2023 4:39 PM RADIATION DOSE METRICS: Total DLP (mGy-cm): 1912 FINDINGS: ANTERIOR CIRCULATION: Right internal carotid artery: Extensive atherosclerotic calcification of the tortuous carotid siphon with mild to moderate stenosis. Right middle cerebral artery: No occlusion or significant flow-limiting stenosis. No aneurysm. Right anterior cerebral artery: No occlusion or significant stenosis. No aneurysm. Left internal carotid artery: Extensive atherosclerotic calcification of the tortuous carotid siphon with moderate stenoses. Left middle cerebral artery: Moderate to severe stenosis along the distal M1 segment, MCA bi/trifurcation and proximal MCA branches with normal flow seen distally. Left anterior cerebral artery: . No occlusion or significant flow-limiting stenosis. No aneurysm. POSTERIOR CIRCULATION: Right vertebral artery: No occlusion or significant stenosis. No aneurysm. Left vertebral artery: No occlusion or significant stenosis. No aneurysm. 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 Right posterior cerebral artery: No occlusion or significant stenosis. No aneurysm. Bilateral plastic boat patcher are present which is normal variant. Left posterior cerebral artery: No occlusion or significant stenosis. No aneurysm. Bilateral plastic boat patcher are present which is normal variant. HEAD: Brain: Known few scattered recent left hemispheric infarcts are better seen on MRI brain imaging. No evidence of hemorrhagic transformation detected. No significant mass effect or midline shift detected. Old right hemispheric and left frontal infarcts are present. Diffuse cerebral atrophy and advanced moderate to severe chronic small vessel ischemic change. Marked atherosclerotic calcification of the distal internal carotid and vertebral arteries. Cerebral ventricles: Normal. No ventriculomegaly. Bones: Unremarkable. No acute fracture. Paranasal sinuses: Visualized sinuses are normal. No fluid levels. Mastoid air cells: Visualized mastoids are normal. No mastoid effusion. Soft tissues: Unremarkable. PROCEDURE INFORMATION: Exam: CTA Neck Without And With Contrast Exam date and time: 09/13/2023 3:02 PM Age: 68 years old Clinical indication: /eval stenosis given recent stroke TECHNIQUE: Imaging protocol: Computed tomographic angiography of the neck without and with contrast. Exam focused on the cervical segments of the vasculature. 3D rendering (Not supervised by radiologist): MIP and/or 3D reconstructed images were created by the technologist. Software analysis: LVO algorithm analysis was applied to this CTA data. AI analysis results were neither submitted to nor interpreted by this radiologist. Radiation optimization: All CT scans at this facility use at least one of these dose optimization techniques: automated exposure control; mA and/or kV adjustment per patient size (includes targeted exams where dose is matched to clinical indication); or iterative reconstruction. Contrast material: OMNIPAQUE 350; Contrast volume: 65 ml; Contrast route: INTRAVENOUS (IV); COMPARISON: BRAIN/NECK CTA 03/18/2023 4:39 PM RADIATION DOSE METRICS: Total DLP (mGy-cm): 0 FINDINGS: Right common carotid artery: No flow-limiting stenosis. No dissection or occlusion. Right internal carotid artery: Tortuous cervical ICA is present. No flow-limiting stenosis. No dissection or occlusion. Right external carotid artery: No occlusion or stenosis of the origin. Left common carotid artery: No flow-limiting stenosis. No dissection or occlusion. Left internal carotid artery: Tortuous cervical ICA is present. Atherosclerotic plaques are present along the left carotid bifurcation. No flow-limiting stenosis. No dissection or occlusion. Left external carotid artery: No occlusion or stenosis of the origin. Right vertebral artery: Severe occlusive stenosis of the right vertebral artery origin. Left vertebral artery: Occlusion of the left vertebral artery is present at the origin with distal reconstitution near C2-C3. Soft tissues: No significant soft tissue swelling. Bones/joints: No acute fracture. Lungs: The lungs are hyperexpanded and emphysematous. Mild peribronchial thickening is present. REFERENCES: NASCET CRITERIA. The degree of stenosis in the cervical segment of the internal carotid artery is based on NASCET criteria. Normal is no stenosis. Mild is less than 50% stenosis. Moderate is 50-69% stenosis. Severe is 70% to 99% stenosis. Total occlusion is no detectable patent lumen. IMPRESSION: CTA Head Without And With Contrast, Arteriography 1. No definite acute major large vessel branch occlusion. Probable intracranial atherosclerotic disease. Moderate to severe stenosis along the distal M1 segment, MCA bi/trifurcation and proximal MCA branches with normal flow seen distally. Please correlate with neurologic symptoms and refer to recent MRI brain report for additional details. 2. 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 3. Known few scattered recent left hemispheric infarcts are better seen on MRI brain imaging. No evidence of hemorrhagic transformation detected. No significant mass effect or midline shift detected. CTA Neck Without And With Contrast 1. No flow-limiting internal carotid artery stenosis detected. 2. Severe occlusive stenosis of the right vertebral artery origin. 3. Occlusion of the left vertebral artery is present at the origin with distal reconstitution near C2-C3. Benny Fiore MD On 09/13/2023 15:41:11; [id number] [facility] 2023-09-13 05:27:15 PROCEDURE INFORMATIO N: Exam: MR Head Without Contrast Exam date and time: 09/13/2023 5:28 AM Age: 68 years old Clinical indication: /transient dysarthria TECHNIQUE: Imaging protocol: Magnetic resonance imaging of the head without contrast. COMPARISON: BRAIN WO CONTRAST MRI 03/19/2023 2:31 AM FINDINGS: Limitations: Image detail is degraded by motion artifacts. Brain: There are a few scattered foci of restricted diffusion of the cortex of the left frontal, left parietal, and left occipitotemporal regions. There is a focus of diffusion restriction of the left mosher radiata. There are generalized involutional changes of the brain and microangiopathic changes of the white matter. There are chronic infarcts of the right parietal and right occipital lobes. There are multiple chronic lacunar infarcts of the bilateral centrum semiovale, mosher radiata, right basal ganglia, and bilateral cerebellum. Cerebral ventricles: Normal. No ventriculomegaly. Bones: Unremarkable. Paranasal sinuses: Normal as visualized. No acute sinusitis. Mastoid air cells: No appreciable mastoid effusion. Orbital cavities: Unremarkable. Soft tissues: Unremarkable. IMPRESSION: 1. Acute or recent multifocal infarcts involving the left cerebral cortex and left mosher radiata, as described. There is no evidence of acute intracranial hemorrhage. 2. Chronic multifocal infarcts are noted, as described. Joao Hamlin MD On 09/13/2023 05:58:20; [id number] [facility] 2023-03-19 02:20:00 EXAM: MRI BRAIN WITH OUT CONTRAST DATE: 03/19/2023 INDICATION: - ams , r/o stroke. COMPARISON: MRI brain dated 03/24/2022 and 01/29/2022. TECHNIQUE: Multiplanar, multisequence MRI of the brain without contrast. IV contrast: None. FINDINGS: Tiny focus of restricted diffusion involving the left parietal lobe (series 202, image 160 and series 203, image 156). Areas of encephalomalacia and gliosis in the right greater than left cerebral hemisphere appears similar to prior examination dated 03/24/2022. Areas of encephalomalacia are most conspicuous in the right posterior frontal and parietal lobes, right occipital lobe and left posterior frontal and parietal lobes. Encephalomalacia and gliosis includes the bilateral perirolandic regions. Sequela of smaller prior lacunar infarct involving right basal ganglia/mosher radiata, left basal ganglia/mosher radiata, left external capsule, right thalamus and bilateral cerebellar hemispheres. Extensive T2/FLAIR hyperintensities within the supratentorial white matter and kamini are nonspecific, favored to represent microvascular ischemic changes. Asymmetric volume loss on the right cerebral hemisphere results in ex vacuo dilatation of the right lateral ventricles. Wallerian degeneration along the course of the right corticospinal tracts. No evidence of acute hemorrhage. No midline shift or downward herniation. Subtle areas of curvilinear susceptibility, and areas of chronic infarction, favored to represent sequela of prior laminar necrosis. The included paranasal sinuses and skull base are unremarkable. IMPRESSION: 1. Tiny focus of restricted diffusion involving the left parietal lobe is consistent with recent ischemic changes. No evidence of superimposed hemorrhage. 2. Additional chronic findings with extensive areas of ablation gliosis the representing chronic ischemic change, as described above, are without significant interval change compared to 03/24/2022. [facility] 2022-03-31 15:59:00 Radiation Dose CTDIV OL = 0 (mGy): DLP = 623 (mGy-cm) PROCEDURE INFORMATION: Exam: CT Head Without Contrast Exam date and time: 03/31/2022 3:59 PM Age: 66 years old Clinical indication: /right numbness, recent stroke, R/O acute disease TECHNIQUE: Imaging protocol: Computed tomography of the head without contrast. Radiation optimization: All CT scans at this facility use at least one of these dose optimization techniques: automated exposure control; mA and/or kV adjustment per patient size (includes targeted exams where dose is matched to clinical indication); or iterative reconstruction. COMPARISON: BRAIN WO CONTRAST MRI 03/24/2022 4:21 AM RADIATION DOSE METRICS: Total DLP (mGy-cm): 623 FINDINGS: Brain: Periventricular and subcortical hypodensities are noted, consistent with sequelae of chronic microvascular ischemia. Diffuse cerebral atrophy is noted, appropiate for age. Intracranial vascular calcifications are noted. 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 Cerebral ventricles: Ex vacuo dilation of the ventricular system is noted. Paranasal sinuses: Visualized sinuses are unremarkable. No fluid levels. Mastoid air cells: Visualized mastoid air cells are well aerated. Bones/joints: Unremarkable. No acute fracture. Soft tissues: Unremarkable. Vasculature: Known acute/subacute infarcts of the left MCA watershed territory are better seen on the recent MRI. IMPRESSION: No hemorrhagic transformation or significant mass effect of the recent left MCA watershed territory acute/subacute infarcts Malik Jin MD On 03/31/2022 16:09:41; [id number] [facility] 2022-03-24 08:01:55 EXAM: CTA BRAIN EXAM: CTA NECK DATE: 03/24/2022 6:19 INDICATION: - R sided numbness COMPARISON: CT angiogram 01/29/2022 TECHNIQUE: Rapid acquisition spiral CT images of the brain and neck were obtained between the aortic arch and the cranial vertex during intravenous infusion of iodinated contrast for the purposes of CT angiography. 3-D CT angiographic images are created using MIP technique at the acquisition workstation. The source images are also presented for interpretation. IV contrast: 60 cc Omnipaque 350 DLP: 569 mGy-cm FINDINGS: NECK CTA: Aortic arch: The great vessels originate from the aortic arch in the standard configuration. Atherosclerotic changes affect the left subclavian artery origin. There is occlusion of the left vertebral artery origins origin and severe stenosis of the right vertebral artery at its origin. Carotid arteries: Eccentric atherosclerotic changes present in both common carotid arteries. There is some mild calcifications in the carotid bifurcations without stenosis. Mild tandem atherosclerotic changes present in the carotid siphons. Vertebral arteries: There is recapitulation of the left vertebral artery at the C4 level through the collaterals. Retrograde flow from the basilar artery is also noted with good filling of the PICA branch. Right vertebral artery is unremarkable. The soft tissues of the neck and other incidental structures are normal. BRAIN CTA: There has been little important change: Moderate severe atherosclerotic narrowing present in the left M1 segment. Multifocal areas of [id number] atherosclerotic irregularity present in the anterior circulation. The basilar artery is diminutive with large posterior communicating arteries bilaterally. Some distal stenosis the right [employer] consistent with the chronic infarct noted on the noncontrast CT The deep cerebral veins and major venous sinuses are normal. The brain parenchyma and other incidental structures are unremarkable. IMPRESSION: Stable appearing exam. Diffuse intracranial atherosclerotic changes probably most significantly left M1 right T2 segments. 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 (All qualitative and quantitative assessments of carotid bifurcation and proximal internal carotid artery stenosis are made referencing the distal internal carotid artery {NASCET criteria}.) [facility] 2022-03-24 04:50:00 EXAMINATION: MRI bra in without contrast DATE: 03/24/2022 INDICATION: Right-sided numbness. FINDINGS: MRI images of the brain compared to similar study dated 01/30/2022. Over the interval, new areas of subcentimeter diffusion restriction have developed in the deep white matter subjacent to the left precentral gyrus and in left parieto-occipital deep white matter. There is probably also a new area in the left precentral gyrus near the hand knob. There are numerous punctate areas in the left watershed distribution which represent resolving changes present on the previous study. There are also new punctate diffusion changes in the left cerebellar white matter and left occipital lobe. Susceptibility weighted images demonstrate no acute hemorrhagic change. Chronic hemosiderin staining in the right basal ganglia associated with volume loss. There are chronic small vessel ischemic changes in the central kamini and the periventricular white matter. There are old cortical ischemic changes in the right postcentral gyrus and parietal lobe and in the right occipital lobe. Is moderate global volume loss. IMPRESSION: New multifocal areas of diffusion change in the left MCA deep watershed territory and in the territory of the left superior cerebellar artery and left posterior cerebral artery. [facility] 2022-01-30 06:15:00 EXAM: MRI BRAIN WITH OUT CONTRAST DATE: 01/30/2022 INDICATION: - Acute aphasia. COMPARISON: CT brain without contrast 01/29/2022. CTA brain and neck stroke perfusion protocol 01/29/2022. TECHNIQUE: Multiplanar, multisequence MRI of the brain without contrast. IV contrast: None. FINDINGS: Multifocal foci of diffusion restriction are seen in the left frontoparietal cortices and white matter in the left MCA territory and possibly watershed distributions. Corresponding FLAIR hyperintense signal is noted. More subtle slightly elevated signal/diffusion restriction is seen in the left caudate with subtle FLAIR hyperintense signal. Chronic areas of encephalomalacia and gliosis are seen in the right occipital parietal lobes, right frontoparietal perirolandic regions including the pre and postcentral gyri, right basal ganglia and contiguous external capsule and mosher radiata. Small chronic infarct in the left precentral gyrus. Additional chronic lacunar infarcts in the left basal ganglia/mosher radiata, left basal ganglia/external capsule, right thalamus and bilateral cerebellar hemispheres. Extensive T2/FLAIR hyperintense signal abnormalities in the right greater than left supratentorial white matter on likely represent chronic microangiopathic change. Ex vacuo dilatation of the right lateral ventricle. Mild cerebral volume loss. Wallerian degeneration along the course of the right corticospinal tracts. No midline shift or downward herniation. The basal cisterns are patent. No acute intracranial hemorrhage. There are some subtle areas of curvilinear susceptibility in areas of chronic infarction may represent the sequela of prior laminar necrosis or petechial hemorrhage. IMPRESSION: 1. Multifocal regions of diffusion restriction at the left posterior frontoparietal lobe including the perirolandic region (series 201 image 128, 136, 144 152, 160), and left occipital lobe (series 201 image 72, 120) are suspicious for acute versus early subacute ischemia in the left MCA and possibly watershed territories. More subtle possible diffusion projection in the left caudate. 2. No MR evidence of acute hemorrhagic transformation. 3. Chronic infarcts in the right greater than left cerebral hemispheres. Chronic lacunar infarcts in the cerebellum. Advanced chronic microangiopathic change. Critical finding of multifocal regions of diffusion restriction at the left posterior frontoparietal lobe and left occipital lobe are suspicious for acute versus subacute ischemia was communicated to and acknowledged by Owen Rankin via telephone at 01/30/2022 7:27 by Lino Wright MD. ID SECTION: Neuro [facility] 2022-01-30 05:53:00 EXAM: XR ABDOMEN 1 VIEW DATE: 01/30/2022 5:48 INDICATION: - MRI clearance COMPARISON: None. TECHNIQUE: AP view of the abdomen. FINDINGS: EKG leads overlie the chest and abdomen. Bowel: Minimal colonic stool. No dilated small bowel loops. Surgical clips overlying the inguinal regions. Solid organs: No organomegaly. No abnormal calcifications found. Bones: Grossly unremarkable. IMPRESSION: No abdominal abnormalities. [facility] 2022-01-29 15:36:00 EXAM: XR CHEST 1 VIE W DATE: 01/29/2022 at 1536 hours INDICATION: - right facial droop COMPARISON: None TECHNIQUE: AP chest FINDINGS: Lines and tubes: None. Lungs and pleura: Pulmonary vascularity is normal. The lungs are clear. The costophrenic recesses are sharp without pleural effusion. No pneumothorax is identified. Heart and mediastinum: The heart size is normal for technique. The thoracic aorta is mildly tortuous. Calcification is seen within aortic arch. The mediastinal contours are normal. Bones: No acute bony abnormality is identified. IMPRESSION: 1. Tortuous, partially calcified thoracic aorta. 2. There is no additional acute abnormality of the chest identified. [facility] 2022-01-29 13:17:26 EXAM: CT BRAIN WITHO UT CONTRAST DATE: 01/29/2022 INDICATION: - right facial droop. COMPARISON: None. TECHNIQUE: Axial CT images of the brain were obtained. Sagittal and coronal reformats. IV contrast: None DLP: Refer to CT protocol form FINDINGS: Non-contrast images of the head demonstrate no edema, hemorrhage, mass lesion or other acute intracranial abnormality. Encephalomalacia of the right occipital lobe from prior infarct. Areas of encephalomalacia in the right frontal lobe parietal lobes as well. Old lacunar infarcts in the right greater than left basal ganglia, right mosher radiata and right thalamus. There is confluent periventricular and subcortical white matter hypodensities, consistent with chronic microvascular ischemic changes. Moderate global cerebral volume loss. Ex vacuo dilatation the right lateral ventricle adjacent areas of chronic infarction. No hydrocephalus. The basal cisterns are patent. Lacunar infarcts in the left greater than right cerebellar hemispheres are age-indeterminate may be chronic as well. The skull base, calvarium, and included facial bones are unremarkable. The paranasal sinuses are predominantly clear. IMPRESSION: 1. Severe chronic ischemic changes, which limits evaluation for acute ischemic changes. No sign of acute cortical infarct or parenchymal hemorrhage.. If there is concern for acute infarction, MRI is recommended. . UT SECTION: Neuro [facility] 2022-01-29 13:17:26 EXAM: CTA BRAIN EXAM: CTA NECK EXAM: CT PERFUSION BRAIN DATE: 01/29/2022 INDICATION: - Stroke. COMPARISON: None. TECHNIQUE: - Dynamic CT perfusion images on a limited area of the brain parenchyma are performed during bolus injection of iodinated contrast material. Color maps of relative cerebral blood flow, relative cerebral blood volume, time to peak, and mean transit time are created on an independent workstation and are submitted along with the source image data. [facility] was used in the care of this patient. -Rapid acquisition spiral CT images of the brain and neck were obtained between the aortic arch and the cranial vertex during intravenous infusion of iodinated contrast for the purposes of CT angiography. 3-D CT angiographic images are created using MIP technique at the acquisition workstation. The source images are also presented for interpretation. IV contrast: Refer to MAR/interventional radiology technologist documentation DLP: Refer to CT protocol form FINDINGS: NECK CTA: Aortic arch: The great vessels originate from the aortic arch in the standard configuration. Atherosclerotic changes in the proximal left subclavian artery with mild luminal segmental narrowing by less than 50%. Atherosclerotic plaquing calcification of the right vertebral artery origin with severe stenosis. The left vertebral artery is occluded from its origin. Common carotid arteries: Bilateral atherosclerotic plaque throughout the proximal common carotid arteries. Internal carotid arteries: * Right: There are areas of intimal thickening in the carotid bulb and bifurcation, but there is no stenosis by NASCET criteria. * Left: There are areas of intimal thickening and calcification in the carotid bulb and bifurcation, but there is no stenosis by NASCET criteria. Vertebral arteries: Left vertebral artery is occluded from its origin with re-opacification and diminutive caliber of the distal V2, V3 and V4 segments. Atherosclerotic plaque/contour changes and multifocal areas of stenosis along the right cervical vertebral artery. Severe stenosis of the right cervical vertebral artery origin. Multifocal mild and moderate stenoses of the more distal right V1 segment. BRAIN CTA: Arteries: There atherosclerotic calcifications in the carotid siphons bilaterally, causing mild stenosis. There is multifocal luminal irregularity of the anterior and posterior circulation bilaterally secondary to diffuse intracranial atherosclerosis. Severe segmental stenosis along the left M1 segment. Multifocal stenoses of the bilateral M2 more peripheral MCA branches. Multifocal severe stenosis of the right right P2 segment. The P1 segments are diminutive or severely narrowed, greater on the left. The posterior communicating arteries contribute to the supply of the P2 segments. Multifocal areas of stenosis of the bilateral P3 and more distal [employer] DEPENDENCY branches. The opacified distal left vertebral artery is diminutive in caliber. The dominant right vertebral artery gradually decrease in caliber. Approach is the origin of the basilar artery. The basilar artery is small in caliber and becomes severely narrowed distally. No intracranial aneurysm. Veins: Cannot be evaluated due to the early arterial phase of contrast. CT PERFUSION: Perfusion maps: The CTP acquisition is of adequate quality. There is no regional abnormality in cerebral blood flow, cerebral blood volume, or transit time in the imaged areas of the brain to suggest active oligemia or infarction. Quantitative software analysis: CBF<30% = 0 cc Tmax>6sec = 0 cc There are no artifactual areas of predicted core or penumbra. IMPRESSION: 1. Severe atherosclerotic disease throughout the extracranial intracranial arterial circulation. 2. The left vertebral artery is occluded from its origin with distal opacification of the diminutive distal left vertebral artery. 3. Severe narrowing of the right vertebral artery origin. Multifocal stenoses of the right P1 segment. 4. Severe diffuse intracranial atherosclerotic disease involving the anterior and posterior circulation. Severe stenosis of the left M1 segment. Multifocal stenoses of the bilateral M2 and more peripheral MCA branches. Severe stenosis of the right P2 segment. Multifocal stenosis of the bilateral P3 and more distal RN CHEMICAL DEPENDENCY branches. The basilar artery is small in caliber becomes diminutive or severely narrowed distally. The P1 segments are hypoplastic or severely narrowed, left greater than right. The posterior communicating arteries are patent. 5.No findings of active oligemia or perfusion imaging. (All qualitative and quantitative assessments of carotid bifurcation and proximal internal carotid artery stenosis are made referencing the distal internal carotid artery {NASCET criteria}.) [place] SECTION: [facility]
--- NOTE | 2023-12-29 13:49 | P.RH.PN ---
Estimated Length of Stay: 13 Expected Discharge Date: 01/09/24 Discharge Disposition Plan: Home Family Support: Yes Residential Goal: Mobility, Transfers, Self Care Vital Signs: Last Vital Signs Temp 97.2 F 12/29/23 06:57 Pulse 55 12/29/23 10:53 Resp 16 12/29/23 06:57 BP 116/57 L 12/29/23 10:53 Pulse Ox 100 12/29/23 06:57 Laboratory: Laboratory Last Values WBC 8.70 thou/uL (4.3-10.9) 12/28/23 06:10 RBC 4.54 M/uL (4.33-5.43) 12/28/23 06:10 Hgb 14.4 g/dL (13.6-17.9) 12/28/23 06:10 Hct 43.7 % (39.6-49.0) 12/28/23 06:10 MCV 96.2 fL (80-100) 12/28/23 06:10 MCH 31.7 pg (27.0-35.0) 12/28/23 06:10 MCHC 33.0 g/dL (32.0-36.0) 12/28/23 06:10 RDW 14.2 % (12.1-15.2) 12/28/23 06:10 Plt Count 199 thou/uL (152-406) 12/28/23 06:10 MPV 8.3 fL (7.6-11.3) 12/28/23 06:10 Neutrophils % 65.8 % (41.7-73.7) 12/28/23 06:10 Lymphocytes % 26.9 % (15.3-44.8) 12/28/23 06:10 Monocytes % 4.6 % (3.3-12.3) 12/28/23 06:10 Eosinophils % 2.1 % (0-4.4) 12/28/23 06:10 Basophils % 0.6 % (0-1.3) 12/28/23 06:10 Absolute Neutrophils 5.7 K/uL (1.8-8.0) 12/28/23 06:10 Segmented Neutrophils 64 % (40-80) 12/28/23 06:10 Absolute Lymphocytes 2.3 K/uL (0.7-4.9) 12/28/23 06:10 Lymphocytes 25 % (15-42) 12/28/23 06:10 Monocytes 5 % (0-10) 12/28/23 06:10 Absolute Monocytes 0.4 K/uL (0.1-1.3) 12/28/23 06:10 Eosinophils 3 % (0-3) 12/28/23 06:10 Absolute Eosinophils 0.2 K/uL (0-0.5) 12/28/23 06:10 Basophils 1 % (0-1) 12/28/23 06:10 Absolute Basophils 0.0 K/uL (0-0.5) 12/28/23 06:10 Atypical Lymphocytes 2 % 12/28/23 06:10 Platelet Estimate Adeq 12/28/23 06:10 Morphology Comment Not seen (NOT SEEN) 12/28/23 06:10 Sodium 140 mEq/L (136-145) 12/28/23 06:10 Potassium 4.3 mEq/L (3.5-5.1) 12/28/23 06:10 Chloride 111 mEq/L (98-107) H 12/28/23 06:10 Carbon Dioxide 24 mEq/L (21-32) 12/28/23 06:10 Anion Gap 9.3 mEq/L (5.0-15.0) 12/28/23 06:10 BUN 14 mg/dL (7-18) 12/28/23 06:10 Creatinine 1.02 mg/dL (0.70-1.30) 12/28/23 06:10 Est GFR (CKD-EPI) 81 ml/min (=/>90) L 12/28/23 06:10 Glucose 96 mg/dL (74-106) 12/28/23 06:10 Calcium 9.9 mg/dL (8.5-10.1) 12/28/23 06:10 Magnesium 2.2 mg/dL (1.6-2.4) 12/28/23 06:10 Albumin 3.9 g/dL (3.4-5.0) 12/28/23 06:10 Prealbumin 16.8 mg/dL (20-40) L 12/28/23 06:10 Urine Color Light-yellow (Yellow) 12/27/23 18:45 Urine Clarity Clear (Clear) 12/27/23 18:45 Urine pH 6.5 (5.0-7.0) 12/27/23 18:45 Ur Specific [place] 1.018 (1.005-1.030) 12/27/23 18:45 Glucose (UA)(Auto) Negative (Negative) 12/27/23 18:45 Urine Ketones Negative (Negative) 12/27/23 18:45 Urine Blood Negative (Negative) 12/27/23 18:45 Urine Nitrite Negative (Negative) 12/27/23 18:45 Urine Bilirubin Negative (Negative) 12/27/23 18:45 Urine Urobilinogen Normal (Normal) 12/27/23 18:45 Ur Leukocyte Esterase Negative Pamela/uL (Negative) 12/27/23 18:45 Urine RBC None seen /HPF (None Seen) 12/27/23 18:45 Urine WBC <5 /HPF (<5) 12/27/23 18:45 Ur Squamous Epith Cells <5 /HPF (None Seen) 12/27/23 18:45 Urine Bacteria None seen /HPF (<20) 12/27/23 18:45 Urine Mucus Slight /HPF (None Seen) 12/27/23 18:45 Urine Culture Reflexed Not needed 12/27/23 18:45 Urine Total Protein Negative (Negative) 12/27/23 18:45 Smear Scan Ok (OK) 12/28/23 06:10 Weight: 120 lb Wound Present: No Closed Surgical Incision Present: No Physician Update: Labs reviewed and are stable. Mild right sided weakness with incoordination. SLUMS 6, poor attention, dysphonia, on puree diet. Needs 24 hr care for home. Not med PT goals, CGA to min bed mobility. 250' with RW and 15 steps with min assist. Car transfers with min assist. 0/4, STG and LTG. Max assist for transfers. Summary: Patient's care plan and terminal worker goals have been reviewed and revised as necessary. Please see the Rehabilitation Signature page for all necessary signatures.
[2023-12-30] MEDS: DOCUSATE NA/SENNA CONC 1 TAB PO PRN (20:41)
[2023-12-31] MEDS: DOCUSATE NA/SENNA CONC 1 TAB PO SCH (08:31)
[2024-01-01] MEDS: DRISDOL (VITAMIN D=ERGOCALCIFEROL) 50000 UNIT CAP PO SCH (10:40)
--- NOTE | 2024-01-02 00:21 | PN ---
Date of Progress Note: 01/01/2024 Time Of Service: 1:25 p.m. Subjective: Mr. Savage is resting in bed. He is requesting some fried chicken for his lunch and the sister is getting that for him. He as noted by the therapist is having some difficulty initiating m ovement and with his accuracy of movement in the right upper extremity. There is also some difficult y with initiating his walking and may have a tendency to lose balance either tipping forwards or back wards with his posture. However, at times, he does have very good stable ambulation with no loss of balance. Objective: He denies any fevers, chills, nausea, vomiting. He is somewhat worried about the chopped consistency of food for his aspiration risk and that is managed by the Speech Service. Physical Examination: Vital Signs: Blood pressure 129/63, pulse 63, respiratory rate 18, temperature 97.2, oxygen saturati on 97%. General: Mr. Savage is sitting in bed in between therapy sessions. HEENT: He appears normocephalic, atraumatic. Sclerae anicteric. Oropharynx pink and moist. Neck: Supple. Chest: Clear. Extremities: His right upper extremity shows some mild weakness and incoordination and above his rig ht lower extremity. Laboratory Studies: No new laboratory studies. X-ray/imaging: No new x-rays or imaging. Medications: Eliquis 5 mg twice daily, aspirin 81 mg daily, Lipitor 80 mg at bedtime, Ensure Clear 2 37 mL twice daily, vitamin D 50,000 units weekly, Keppra 750 mg twice daily, Prinivil 10 mg twice bev ly, Imodium 2 mg every 4 hours as needed, melatonin 3 mg at bedtime, Senokot-S 2 twice daily, sertral ine 50 mg daily. Progress Made With Physical, Occupational, And Speech Therapy: Today with physical therapy, did comp lete bicycle ergometer. He did 15 minutes with rest break. He has occupational therapy, contact marcin mtz assistance with a walker to transfer from bed to wheelchair. Maximum assistance, donning and doff ing lower body clothing. With speech, maintained sustained attention for 5 minutes for given task an d able to answer yes or no questions with 100% accuracy. Temporal and spatial orientation tasks with 90% accuracy. Mr. Savage is making fair progress with physical, occupational, and speech therapy. Assessment: Mr. Savage is a 68-year-old patient in the rehabilitation unit with left MCA stroke that is chronic and late effects of stroke with incoordination and some apparent vascular parkinsonism. He has atrial fibrillation, decreased mobility, decreased physical functioning, dysphagia, essential hypertension, dyslipidemia, urinary tract infection treated. Plan: 1.Continue with physical, occupational, and speech therapy for 3.5 hours, 5 of 7 days. 2.His medication regimen has been continued. He has Keppra for seizure prevention, Eliquis for his atrial fibrillation, vitamin D supplement for low vitamin D level, Prinivil for hypertension, Senokot for constipation. He of course will continue with therapy and his comorbidities that are impacting rehabilitation has b een stably managed and are not negatively impacting his rehabilitation. RACHELL/KAYY Voice ID: [id number] Report ID: [id number]
[2024-01-02] MEDS: DOCUSATE NA/SENNA CONC 1 TAB PO PRN (19:25)
--- NOTE | 2024-01-03 22:51 | PN ---
Date of Progress Note: 01/03/2024 Time Of Service: 1:25 p.m. Subjective: Mr. Savage is in bed. He has been somewhat impulsive, getting out of bed without tellin g the nurse. The bed alarm has gone off on few occasions. He has not had any falls or any other iss ues there. Otherwise, he is very happy with his therapy and soon to be discharged this weekend. Review of Systems: He denies any fevers, chills, nausea, vomiting. No significant myalgias, arthralgias, rash, headache , or other complaints. Physical Examination: Vital Signs: Blood pressure 131/58, pulse 55, respiratory rate 16, temperature 97, oxygen saturation 97. General: Mr. Savage again is resting comfortably. Does have some smiles to most questions, is appro priately responsive and follows directions without difficulty. He does have mild incoordination in t he right upper extremity and lower extremity from his stroke. Mild weakness as well. Laboratory Studies: No new laboratory studies. X-ray/imaging: No new x-rays or imaging. Medications: Medications have been reviewed and remain unchanged. Progress Made With Physical, Occupational, And Speech Therapy: Today with physical therapy, he was a ble to perform [id number]-pd-[id number] transfers with standby assistance, lam-ok-npnpd transfers standby assist ance as well and verbal cues. He did ambulate 250 feet and 500 feet with a rolling walker and contac t guard assistance. He ascended and descended 15 steps with bilateral handrails and standby assistan ce. With his occupational therapy, independent with xevqtz-iw-btg transfers, ambulated from room to toilet with a rolling walker with supervision. Activities of daily living done with supervision and cues. With speech, answered simple yes and no questions, 100% accuracy. Temporal and spatial orient ation questions answered with 75% accuracy, this is an improvement from 68% previously. He is on a m inced to moist diet. Mr. Savage is making great progress, but still needs significant help for safety awareness and making sound decisions that he will not be at risk of falling and injury. Assessment: Mr. Savage is a 68-year-old patient in the rehabilitation unit with left MCA stroke with right-sided incoordination. He does have some cognitive impairment and impulsivity. He has decreas ed mobility, decreased physical functioning, dysphagia, essential hypertension, urinary tract infecti on that is treated. Plan: 1.Continue with physical, occupational, and speech therapy for 3.5 hours, 5 of 7 days. 2.Continue with aspirin 81 mg daily for stroke risk reduction. 3.Eliquis 5 mg daily for DVT risk and stroke risk reduction. 4.Lipitor 80 mg at bedtime for dyslipidemia. 5.Ensure life for malnutrition. 6.Vitamin D for supplementation as appropriate. 7.Keppra for seizure prophylaxis. 8.Prinivil for blood pressure management. 9.Imodium for constipation as needed. 10.Melatonin for insomnia and Zoloft for his depression. Comorbidities That Are Impacting Rehabilitation: Mr. Savage has some cognitive impairment with impul sivity, tendency to not be aware in terms of safety awareness which will put him at an increased risk of falling. After his discharge, he would be benefitted best by 24-hour supervision that is being a rranged with multiple family members including 2 children, a son and a daughter, and they are working on caregivers being present when the patient is at home. He currently lives in an independent apart ment and the plan would be again to have him in a safe environment with 24-hour supervision. RACHELL/KAYY Voice ID: [id number] Report ID: [id number]
[2024-01-04 05:40] LABS: Absolute Basophils 0.1 K/uL (0-0.5); Absolute Eosinophils 0.2 K/uL (0-0.5); Absolute Lymphocytes (CBC) 2.5 K/uL (0.7-4.9); Absolute Monocytes 0.4 K/uL (0.1-1.3); Basophils % 0.9 % (0-1.3); Eosinophils % 2.6 % (0-4.4); Hematocrit 34.8 % (39.6-49.0); Hemoglobin 11.6 g/dL (13.6-17.9); Lymphocytes % 35.3 % (15.3-44.8); MCH 31.8 pg (27.0-35.0); MCHC 33.3 g/dL (32.0-36.0); MCV 95.6 fL (80-100); MPV 7.8 fL (7.6-11.3); Monocytes % 5.4 % (3.3-12.3); Neutrophils % 55.8 % (41.7-73.7); Platelets 189 thou/uL (152-406); RBC Red Blood Cell Count 3.64 M/uL (4.33-5.43); Red Cell Distribution Width 13.8 % (12.1-15.2)
[2024-01-04 06:08] LABS: Albumin 3.2 g/dL (3.4-5.0); Magnesium 1.8 mg/dL (1.6-2.4); Prealbumin 22.5 mg/dL (20-40)
--- NOTE | 2024-01-04 20:33 | PN ---
Date of Progress Note: 01/04/2024 Time Of Service: 1:35 p.m. Subjective: Mr. Savage is resting in bed. He just completed a therapy session. He has no new compl aints. He is happy with his therapy so far. He knows he will be discharged in 2 days and will have therapy continue. Family will be helping at home. Objective: No fevers, chills, nausea, vomiting. No significant myalgias or arthralgias. No rash, h eadache, weight change. Physical Examination: Vital Signs: Blood pressure 129/59, pulse 56, respiratory rate 16, temperature 97.3, oxygen saturati on 94%. General: Mr. Savage is resting comfortably in bed. HEENT: He is normocephalic, atraumatic. Sclerae anicteric. Oropharynx pink, moist. Neck: Supple. Chest: Clear. Extremities: Right upper extremity has some incoordination, mild weakness as a side effect by stroke . Laboratory Studies: White blood cell count 7.2, hemoglobin 11.6, platelets 189. Sodium 140, potassi um 4.0, chloride 111, carbon dioxide 25, BUN 15, creatinine 0.91, glucose 100, calcium 9.1, magnesium 1.8, albumin 3.2, prealbumin 22.5. X-ray/imaging: No new x-rays or imaging. Medications: Medications have been reviewed and are unchanged. Progress Made With Physical, Occupational, And Speech Therapy: Today with physical therapy, he was a ble to perform multiple qlwsch-bf-nyc transfers independently, rhi-uz-cwvnj transfers done independen tly. Verbal cues were required. Ambulated 350 feet, another 500 feet with standby assistance using verbal cues and to pay attention to his right side. He was up and down 15 steps with bilateral handr ails independently. With occupational therapy, independent with ajwyrk-dr-vpw transfers, sit-to-liu d transfers supervision required. With his speech, used sustained attention during divergent naming for 1 minute. Simple yes and no questions answered with 90% accuracy. Temporal and spatial orientat ion tasks completed with 87% accuracy. Mr. Savage is making good progress overall with physical and occupational therapy. He will be ready for discharge on Monday to continue therapy via Home Health. Assessment: Mr. Savage is a 68-year-old patient with left MCA stroke and residual right-sided weakne ss and incoordination and is making great progress with physical, occupational, and speech therapy. He has comorbidities of hypertension, urinary tract infection with decreased mobility, decreased phys ical functioning, and risk of seizures, but has been seizure-free here, he has also dyslipidemia. Plan: 1.Continue with physical, occupational, and speech therapy for 3.5 hours, 5 of 7 days. 2.Continue with all medications as indicated including the Keppra, vitamin D, Lipitor, Eliquis, Prin ivil, Imodium, melatonin. Comorbidities That Are Impacting Rehabilitation: The patient as noted had been impulsive. He has hollingsworth d episodes of getting out of the bed without notifying staff. He is actually doing better over the l ast few days. Still has bed and chair alarm in place. He will require 24-hour care and supervision while discharged. RACHELL/KAYY Voice ID: [id number] Report ID: [id number]
--- NOTE | 2024-01-05 13:34 | P.RH.PN ---
Estimated Length of Stay: 13 Expected Discharge Date: 01/06/24 Discharge Disposition Plan: Home Family Support: Yes Vital Signs: Last Vital Signs Temp 96.9 F 01/05/24 07:37 Pulse 54 01/05/24 09:00 Resp 18 01/05/24 07:37 BP 130/63 01/05/24 09:00 Pulse Ox 96 01/05/24 07:37 Laboratory: Laboratory Last Values WBC 7.20 thou/uL (4.3-10.9) 01/04/24 05:25 RBC 3.64 M/uL (4.33-5.43) L 01/04/24 05:25 Hgb 11.6 g/dL (13.6-17.9) L 01/04/24 05:25 Hct 34.8 % (39.6-49.0) L 01/04/24 05:25 MCV 95.6 fL (80-100) 01/04/24 05:25 MCH 31.8 pg (27.0-35.0) 01/04/24 05:25 MCHC 33.3 g/dL (32.0-36.0) 01/04/24 05:25 RDW 13.8 % (12.1-15.2) 01/04/24 05:25 Plt Count 189 thou/uL (152-406) 01/04/24 05:25 MPV 7.8 fL (7.6-11.3) 01/04/24 05:25 Neutrophils % 55.8 % (41.7-73.7) 01/04/24 05:25 Lymphocytes % 35.3 % (15.3-44.8) 01/04/24 05:25 Monocytes % 5.4 % (3.3-12.3) 01/04/24 05:25 Eosinophils % 2.6 % (0-4.4) 01/04/24 05:25 Basophils % 0.9 % (0-1.3) 01/04/24 05:25 Absolute Neutrophils 4.0 K/uL (1.8-8.0) 01/04/24 05:25 Segmented Neutrophils 64 % (40-80) 12/28/23 06:10 Absolute Lymphocytes 2.5 K/uL (0.7-4.9) 01/04/24 05:25 Lymphocytes 25 % (15-42) 12/28/23 06:10 Monocytes 5 % (0-10) 12/28/23 06:10 Absolute Monocytes 0.4 K/uL (0.1-1.3) 01/04/24 05:25 Eosinophils 3 % (0-3) 12/28/23 06:10 Absolute Eosinophils 0.2 K/uL (0-0.5) 01/04/24 05:25 Basophils 1 % (0-1) 12/28/23 06:10 Absolute Basophils 0.1 K/uL (0-0.5) 01/04/24 05:25 Atypical Lymphocytes 2 % 12/28/23 06:10 Platelet Estimate Adeq 12/28/23 06:10 Morphology Comment Not seen (NOT SEEN) 12/28/23 06:10 Sodium 140 mEq/L (136-145) 01/04/24 05:25 Potassium 4.0 mEq/L (3.5-5.1) 01/04/24 05:25 Chloride 111 mEq/L (98-107) H 01/04/24 05:25 Carbon Dioxide 25 mEq/L (21-32) 01/04/24 05:25 Anion Gap 8.0 mEq/L (5.0-15.0) 01/04/24 05:25 BUN 15 mg/dL (7-18) 01/04/24 05:25 Creatinine 0.91 mg/dL (0.70-1.30) 01/04/24 05:25 Est GFR (CKD-EPI) 92 ml/min (=/>90) 01/04/24 05:25 Glucose 100 mg/dL (74-106) 01/04/24 05:25 Calcium 9.1 mg/dL (8.5-10.1) 01/04/24 05:25 Magnesium 1.8 mg/dL (1.6-2.4) 01/04/24 05:25 Albumin 3.2 g/dL (3.4-5.0) L 01/04/24 05:25 Prealbumin 22.5 mg/dL (20-40) 01/04/24 05:25 Urine Color Light-yellow (Yellow) 12/27/23 18:45 Urine Clarity Clear (Clear) 12/27/23 18:45 Urine pH 6.5 (5.0-7.0) 12/27/23 18:45 Ur Specific [place] 1.018 (1.005-1.030) 12/27/23 18:45 Glucose (UA)(Auto) Negative (Negative) 12/27/23 18:45 Urine Ketones Negative (Negative) 12/27/23 18:45 Urine Blood Negative (Negative) 12/27/23 18:45 Urine Nitrite Negative (Negative) 12/27/23 18:45 Urine Bilirubin Negative (Negative) 12/27/23 18:45 Urine Urobilinogen Normal (Normal) 12/27/23 18:45 Ur Leukocyte Esterase Negative Pamela/uL (Negative) 12/27/23 18:45 Urine RBC None seen /HPF (None Seen) 12/27/23 18:45 Urine WBC <5 /HPF (<5) 12/27/23 18:45 Ur Squamous Epith Cells <5 /HPF (None Seen) 12/27/23 18:45 Urine Bacteria None seen /HPF (<20) 12/27/23 18:45 Urine Mucus Slight /HPF (None Seen) 12/27/23 18:45 Urine Culture Reflexed Not needed 12/27/23 18:45 Urine Total Protein Negative (Negative) 12/27/23 18:45 Smear Scan Ok (OK) 12/28/23 06:10 Weight: 130 lb 1.6 oz Wound Present: No Closed Surgical Incision Present: No Physician Update: Labs were reviewed and are stable. BIMS 10, SLUMS 10, improved to mince and moist diet. He is independent with all ADLs, RW 250', and WC 500'. Difficulty following verbal commands, needs supervision. Min assist with clothes. Able to follow visual ques. Summary: Patient's care plan and roasterman goals have been reviewed and revised as necessary. Please see the Rehabilitation Signature page for all necessary signatures.
[2024-01-06 08:13] VITALS: BP 124/61
[2024-01-06 08:57] VITALS: TEMP 97.3
== END 2024-01-06 12:00 | disposition home or self-care (01) | DRG 57 ==
LOC: 5TH 17:45
PROVIDERS: ADMIT Psychiatry & Neurology Neurology with Special Qualifications in Child Neurology; ATTEND Psychiatry & Neurology Neurology with Special Qualifications in Child Neurology
DX: I69.320 Aphasia following cerebral infarction (principal); I69.351 Hemiplegia and hemiparesis following cerebral infarction affecting right dominant side; I48.19 Other persistent atrial fibrillation; N39.0 Urinary tract infection, site not specified; I25.10 Atherosclerotic heart disease of native coronary artery without angina pectoris; R13.10 Dysphagia, unspecified; I10 Essential (primary) hypertension; E78.5 Hyperlipidemia, unspecified
CPT/HCPCS: 36415; 71045; 80048; 81001; 82040; 83735; 84134; 85025; 87086; 87088; 92523; 92610; 97110; 97112; 97116; 97129; 97163; 97165; 97530; 97542